=== PATIENT | female | born 1995 | race Caucasian/White ===

== ENCOUNTER 2024-02-12 19:27 | Emergency (ER) | payer OTHER, SELFPAY ==
--- NOTE | ~2024-02-12 | US_ITS ---
EXAMINATION: US VENOUS ULTRASOUND WITH DOPPLER LOWER EXTREMITY, BILATERAL CLINICAL INFORMATION: Bilateral lower extremity pain and edema. COMPARISON: None available. TECHNIQUE: Ultrasound of the deep veins is performed from the hip to the calf with compression sonography and color and pulse Doppler assessment. Spectral analysis with color-flow imaging is performed. FINDINGS: RIGHT: There is normal venous compression and respiratory variation and augmented flow. The visualized common femoral vein, superficial femoral vein, profunda femoral vein, popliteal vein, and the trifurcation region shows no evidence of deep venous thrombosis. There is no significant popliteal fossa cyst. LEFT: There is normal venous compression and respiratory variation and augmented flow. The visualized common femoral vein, superficial femoral vein, profunda femoral vein, popliteal vein, and the trifurcation region shows no evidence of deep venous thrombosis. There is no significant popliteal fossa cyst. If the patient's symptoms persist, followup ultrasound in 5 days 7 days might be of value to exclude proximal propagation from a non-visualized calf vein. US/US venous duplex LE BI IMPRESSION: No DVT demonstrated in the bilateral lower extremities.
--- NOTE | ~2024-02-12 | XR_ITS ---
EXAMINATION: XR CHEST CLINICAL INFORMATION: Shortness of breath. COMPARISON: None available. TECHNIQUE: Frontal view of the chest was obtained. FINDINGS: No significant abnormality is noted involving the heart, lungs, mediastinum, bony thorax or soft tissues. XR/XR chest 1V IMPRESSION: Unremarkable examination.
[2024-02-12 19:49] VITALS: BP 141/80; PULSE 77; RESP 20; TEMP 36.6; O2SAT 100; BMI 31.2
--- NOTE | 2024-02-12 19:55 | ECG_ITS ---
Test Reason : CHEST PAIN Blood Pressure : / mmHG Vent. Rate : 081 BPM Atrial Rate : 081 BPM P-R Int : 170 ms QRS Dur : 082 ms QT Int : 382 ms P-R-T Axes : 064 011 027 degrees QTc Int : 443 ms Normal sinus rhythm Normal ECG No previous ECGs available Referred By: Yo Segovia Electronically Signed By:Giancarlo Thomas
--- NOTE | 2024-02-12 19:56 | ED_ITS ---
HPI - General Adult General Chief complaint: General Medical Stated complaint: diabetic type1, lft leg pain Time Seen by Provider: 02/12/24 21:01 Source: patient Mode of arrival: ambulatory Limitations: no limitations History of Present Illness HPI narrative: Patient comes to the emergency room complaining of at least 1 year of bilateral lower extremity pain, more on the left, shortness of breath, no chest pain. Patient states that a few years ago when the symptoms started she had an ultrasound of the legs done and showed some abnormality but she can not really explain what it was. Patient denies any palpitations, no syncope, no chest pain. Related Data Allergies Allergy/AdvReac Type Severity Reaction Status Date / Time No Known Allergies Allergy Verified 02/12/24 19:52 Review of Systems 2 Review of Systems: Constitutional : No Weight loss, No Fever, No Chills, No Night Sweats, No Fatigue, No Malaise ENT/Mouth : No Hearing loss, No Ear Pain, No Nasal Congestion, No Sinus Pain, No Hoarseness, No sore throat, No Rhinorrhea, No Swallowing Difficulty Eyes: No Eye Pain, No Swelling, No Redness, No Foreign Body, No Discharge, No Vision Changes Cardiovascular : No Chest Pain, complaining of feeling like she can not catch a full breath Respiratory : No Cough, No Sputum, No Wheezing, No Smoke Exposure, No Dyspnea Gastrointestinal : No Nausea, No Vomiting, No Diarrhea, No Constipation, No abdominal Pain, No Hematochezia, No Melena Genitourinary : no irregular bleeding, No Dysuria, No Urinary Frequency, No Hematuria, No Urinary Incontinence, No Urgency, No Flank Pain, No Urinary Flow Changes, No Hesitancy Musculoskeletal : Complaining of bilateral calf pain for years, No joint pain, No Myalgias, No Joint Swelling Skin : No Skin Lesions, No rash Neuro : No Weakness, No Numbness, No Paresthesias, No Loss of Consciousness, No Dizziness, No Headache Psych : No Anxiety/Panic, No Depression, No SI/HI/AH/VH, No Social Issues, Heme/Lymph: No Bruising, No Bleeding,No Lymphadenopathy Endocrine : No Polyuria, No Polydipsia, No Temperature Intolerance [facility] Past Medical History Medical History (Updated 02/13/24 @ 00:00 by Background Daemon) Type 1 diabetes Social History Social History Smoked in Last 30 Days: No Advance Directives: No Advance Directives Information Provided: No Patient : No Physical Exam ED Vital Signs: Vital Signs - 24 hr 02/12/24 19:49 02/12/24 20:57 Temperature 97.8 F 98.8 F Pulse Rate 77 83 Respiratory Rate 20 20 Blood Pressure 141/80 H 126/73 Pulse Oximetry 100 100 Oxygen Delivery Method Room Air Room Air BMI result Body Mass Index 31.2 Const Other: Appearance: Alert. Oriented X3. No acute distress. Eyes: Pupils equal, round and reactive to light. ENT: Pharynx normal. Neck: Normal inspection. Neck supple. No lymph nodes noted. No crepitus CVS: Normal heart rate and rhythm. Pulses normal. Normal S1 and S2 Respiratory: No respiratory distress. Breath sounds normal. No Wheezing. No rales Abdomen: Soft and nontender. No rigidity. No distention. Skin: Skin warm and dry. Normal skin color. Normal skin turgor. Extremities: No lower extremity edema. No Lacerations. No Rash Neuro: Oriented X 3. No motor deficit. No sensory deficit. Moving all extremities. No slurred speech. CN 2 through 12 grossly intact Psych: calm, cooperative, normal affect Course Course Course Narrative: RME; 28 old female presents to ED for bilateral leg pain chronic shortness of breath and some chest pain. Bilateral lower extremity negative for pitting edema leg swelling or calf pain. Patient will have a cardiac and pulmonary evaluation. Ultrasound legs ordered. Chest lungs clear. Heart exam noraml. Medical Decision Making Medical Decision Making [facility] Narrative: -all of patient's labs, ultrasound and chest x-ray pending. -at this time, all of patient's vitals are completely normal -my interpretation of ultrasound: No obvious sign of DVT, patient's -my interpretation of chest x-ray: No infiltrate -patient has been having symptoms for 2-3 years now. D-dimer negative, ultrasound negative for lower extremity DVT, vitals normal, wells criteria score for pulmonary embolism is 0, PE not suspected Differential Diagnosis Differential Diagnoses: The differential diagnosis associated with the presentation includes (Musculoskeletal pain lower extremity pain, chronic pain syndrome, anxiety) Lab Data [facility] Lab Attestation statement: I reviewed the patient's lab results. 02/12/24 21:22 02/12/24 21:22 Labs: Lab Results 05/09/24 05/09/24 Range/Units 21:22 21:22 WBC 7.2 (4.8-10.8) X10*3/uL RBC 4.29 (4.20-5.50) X10*6/uL Hgb 13.3 (12.0-16.0) g/dl Hct 37.8 (37.0-47.0) % MCV 88.1 (80.0-98.0) fL MCH 31.0 (27.0-33.0) pg MCHC 35.2 H (31.0-35.0) g/dl RDW 12.8 (11.0-16.0) % Plt Count 303 (160-400) X10*3/uL MPV 10.0 (9.4-12.3) fL Immature Gran % (Auto) 0.1 (0.0-0.4) % Neut % (Auto) 68.6 (45-73) % Lymph % (Auto) 22.4 (20-40) % Jay % (Auto) 7.6 (2-11) % Eos % (Auto) 1.0 (0-4) % Baso % (Auto) 0.3 (0-2) % Lymph # (Auto) 1.6 (1.2-4.9) X10*3/uL Jay # (Auto) 0.5 (0.1-1.2) X10*3/uL Eos # (Auto) 0.1 (0.0-0.4) X10*3/uL Baso # (Auto) 0.0 (0.0-0.2) X10*3/uL Abs Immat Gran (auto) 0.01 (0.00-0.03) X10*3/uL Absolute Neuts (auto) 4.9 (2.0-8.3) x10*3/uL Absolute Nucleated RBC 0.000 (0.0-0.012) X10*3/uL Nucleated RBC % (auto) 0.0 (0.0-0.2) /100WBC PT 15.2 H (11.1-13.3) SEC INR 1.3 H (0.9-1.1) APTT 30.3 (26.0-36.8) SEC D-Dimer High Sensitivty < 150 Cancelled NG/ML Sodium 138 (135-145) mmol/L Potassium 3.3 (3.3-5.1) mmol/L Chloride 106 (96-108) mmol/L Carbon Dioxide 22 (22-29) mmol/L Anion Gap 13 (12-20) BUN 6 L (9-16) mg/dL Creatinine 0.75 (0.5-1.4) mg/dL Estim Creat Clear Calc 118.1 Estimated GFR > 60 Random Glucose 146 H (60-115) mg/dL Calcium 8.9 (8.4-10.2) mg/dL Total Bilirubin 0.4 (0.0-1.0) mg/dL AST 14 (5-31) U/L ALT 15 (0-31) U/L Alkaline Phosphatase 54 (39-117) U/L Troponin I High Sens < 2.7 (<3.5-17.0) ng/L B-Natriuretic Peptide 16 (<100) pg/mL Total Protein 7.5 (6.5-8.0) g/dL Albumin 4.1 (3.5-5.0) g/dL Influenza Type A (PCR) NEGATIVE (Negative) Influenza Type B (PCR) NEGATIVE (Negative) RSV RNA Qual (PCR) NEGATIVE (Negative) SARS-CoV-2 RNA (RT-PCR) NEGATIVE (Negative) Independent Interpretation I performed an independent interpretation of an: Plain X-Ray and Ultrasound Radiology Impression Discussion of test interpretation with radiology: I have reviewed the radiologist's reading. Radiologist Impression: RIGHT: There is normal venous compression and respiratory variation and augmented flow. The visualized common femoral vein, superficial femoral vein, profunda femoral vein, popliteal vein, and the trifurcation region shows no evidence of deep venous thrombosis. There is no significant popliteal fossa cyst. LEFT: There is normal venous compression and respiratory variation and augmented flow. The visualized common femoral vein, superficial femoral vein, profunda femoral vein, popliteal vein, and the trifurcation region shows no evidence of deep venous thrombosis. There is no significant popliteal fossa cyst. If the patient's symptoms persist, followup ultrasound in 5 days 7 days might be of value to exclude proximal propagation from a non-visualized calf vein. US/US venous duplex LE BI IMPRESSION: No DVT demonstrated in the bilateral lower extremities. FINDINGS: No significant abnormality is noted involving the heart, lungs, mediastinum, bony thorax or soft tissues. XR/XR chest 1V IMPRESSION: Unremarkable examination Critical Care Time Critical Care Time Critical Care Time: Yes Total Critical Care Time: 45 Attestation: I have personally provided critical care time. Time includes review of lab data, radiology results, discussion with consultants, and monitoring for potential decompensation. Intervention performed as documented. Discharge Plan Discharge Clinical Impression: Musculoskeletal pain Patient Disposition: Home, Self-Care Instructions: Musculoskeletal Pain (ED) Additional Instructions: Please follow-up with your primary care physician tomorrow. If you have any worsening or new symptoms, please return to the emergency room or call [phone] Interventions: ED Discharge Assessment Last Done: 02/12/24 22:33 Discharge Date/Time: 02/12/24 22:36 Print Language: [place] African
[2024-02-12 20:57] VITALS: BP 126/73; PULSE 83; RESP 20; TEMP 37.1; O2SAT 100
[2024-02-12 21:29] LABS: MANUAL DIFF FLAG NO
[2024-02-12 21:30] LABS: Basophils Percent Auto 0.3 % (0-2); Eosinophils Absolute Auto 0.1 X10*3/uL (0.0-0.4); Hematocrit 37.8 % (37.0-47.0); Hemoglobin 13.3 g/dl (12.0-16.0); Imm Gran Abs Auto 0.01 X10*3/uL (0.00-0.03); Imm Gran Pct Auto 0.1 % (0.0-0.4); Lymphocytes Absolute Auto 1.6 X10*3/uL (1.2-4.9); Lymphocytes Percent Auto 22.4 % (20-40); Mean Corpuscular HGB Conc 35.2 g/dl (31.0-35.0); Mean Corpuscular Volume 88.1 fL (80.0-98.0); Monocytes Absolute Auto 0.5 X10*3/uL (0.1-1.2); Monocytes Percent Auto 7.6 % (2-11); Neutrophils Absolute Auto 4.9 x10*3/uL (2.0-8.3); Neutrophils Percent Auto 68.6 % (45-73); Platelet Count 303 X10*3/uL (160-400); Red Blood Count 4.29 X10*6/uL (4.20-5.50); Red Cell Distribution Width 12.8 % (11.0-16.0); White Blood Count 7.2 X10*3/uL (4.8-10.8)
[2024-02-12 21:39] LABS: INTERNATIONAL NORM RATIO 1.3 (0.9-1.1); Prothrombin Time 15.2 SEC (11.1-13.3)
[2024-02-12 21:42] LABS: Partial Thromboplastin Time 30.3 SEC (26.0-36.8)
[2024-02-12 21:43] LABS: D Dimer High Sensitivity < 150 NG/ML
[2024-02-12 21:46] LABS: Alanine Aminotransferase 15 U/L (0-31); Albumin Level 4.1 g/dL (3.5-5.0); Alkaline Phosphatase 54 U/L (39-117); Anion Gap 13 (12-20); Aspartate Amino Transferase 14 U/L (5-31); Bilirubin Total 0.4 mg/dL (0.0-1.0); Blood Urea Nitrogen 6 mg/dL (9-16); Calcium 8.9 mg/dL (8.4-10.2); Carbon Dioxide 22 mmol/L (22-29); Chloride 106 mmol/L (96-108); Creatinine Clr Calc Pharmacy 118.1; Estimated Glomerular Filt Rate > 60; Glucose Random 146 mg/dL (60-115); Potassium 3.3 mmol/L (3.3-5.1); Sodium 138 mmol/L (135-145); Total Protein 7.5 g/dL (6.5-8.0)
[2024-02-12 21:51] LABS: B Type Natriuretic Peptide 16 pg/mL (<100)
[2024-02-12 22:09] LABS: Troponin-I High Sensitivity < 2.7 ng/L (<3.5-17.0)
[2024-02-12 22:17] LABS: Influenza A PCR NEGATIVE (Negative); Influenza B PCR NEGATIVE (Negative); Resp Syncy Virus RNA Qual PCR NEGATIVE (Negative); SARS COV2 PCR INHOUSE NEGATIVE (Negative)
[2024-02-12 22:33] VITALS: BP 126/73; PULSE 83; RESP 20; TEMP 37.1; O2SAT 100
== END 2024-02-12 22:36 | disposition home or self-care (01) ==
LOC: HO.ED 22:34
PROVIDERS: Physician Assistant; Emergency Provider Emergency Medicine
DX: M79.10 Myalgia, unspecified site (principal); E10.9 Type 1 diabetes mellitus without complications; M79.605 Pain in left leg; M79.604 Pain in right leg; R60.0 Localized edema; R07.89 Other chest pain; Z11.52 Encounter for screening for COVID-19; Z20.822 Contact with and (suspected) exposure to COVID-19; Z79.899 Other long term (current) drug therapy
CPT/HCPCS: 0241U; 36415; 71045; 80053; 83880; 84484; 85025; 85379; 85610; 85730; 93005; 93970; 99284

== ENCOUNTER → 2024-02-12 19:55 | Outpatient (BNV) | payer OTHER, SELFPAY | PROVIDERS: Emergency Provider Emergency Medicine; Visit Provider Internal Medicine Cardiovascular Disease | DX: R07.9 Chest pain, unspecified (principal) | CPT/HCPCS: 93010 ==

== ENCOUNTER 2024-05-26 17:15 | Emergency (ER) | payer OTHER, SELFPAY ==
--- NOTE | ~2024-05-26 | XR_ITS ---
EXAMINATION: XR CHEST 1 VIEW CLINICAL INFORMATION: pain COMPARISON: February 11 TECHNIQUE: Single portable frontal view. Tubes and lines: None Lungs and pleura: Both lungs are clear. Heart and mediastinum: The mediastinum is within normal limits.. Bones/soft tissue: Skeletal structures included are normal for patient's age. XR/XR chest 1V IMPRESSION: No radiographic evidence of acute cardiopulmonary disease. Electronically signed by: Pablo Devi MD 05/26/2024 06:37 PM EDT
--- NOTE | ~2024-05-26 | XR_ITS ---
EXAMINATION: XR ABDOMEN KUB CLINICAL INDICATION: constipation , patient has insulin pump COMPARISON: None available. TECHNIQUE: 2 AP views of the abdomen. FINDINGS: Moderate to large amount of stool in the colon. Nonobstructive bowel gas pattern. Electronic pack overlies the left lower quadrant. XR/XR KUB IMPRESSION: Moderate to large amount of stool in the colon. Nonobstructive bowel gas pattern. Electronic pack overlies the left lower quadrant. This study was presented today to September 21, 2024 for interpretation. Stat results provided at this time as requested by referring provider. Electronically signed by: Jacqueline Domínguez MD 09/21/2024 11:42 AM [facility]
--- NOTE | ~2024-05-26 | US_ITS ---
EXAMINATION: US TRIPLEX LOWER EXTREMITY, BILATERAL CLINICAL INFORMATION: Pain COMPARISON: None available. TECHNIQUE: Color-flow triplex imaging with spectral analysis and compression Doppler were performed on the bilateral lower extremities. FINDINGS: Respiratory variation, normal compression and augmented flow are noted throughout the bilateral lower extremities. The visualized common femoral vein, superficial femoral vein, profunda femoral vein, popliteal vein and midcalf peroneal and posterior tibial venous segments show no evidence of deep venous thrombosis bilaterally. There is no Harris's cyst. Mildly enlarged bilateral inguinal lymph nodes measuring up to 1.2 cm short axis on the right and 1.1 cm short axis on the left. US/US venous duplex LE BI IMPRESSION: 1. No evidence of deep venous thrombosis involving the bilateral lower extremities. 2. Mildly enlarged bilateral inguinal lymph nodes measuring up to 1.2 cm short axis on the right and 1.1 cm short axis on the left. Recommend correlation with any etiology for reactive lymphadenopathy, if no clinical explanation a CT abdomen pelvis with contrast can be obtained to assess for any underlying etiology. Electronically signed by: Deja Llamas MD 05/26/2024 07:12 PM EDT
[2024-05-26 18:00] VITALS: BP 112/61; PULSE 84; RESP 18; TEMP 37.1; O2SAT 100; BMI 30.1
--- NOTE | 2024-05-26 18:00 | ED.GENADULT ---
HPI - General Adult General Chief complaint: General Medical Stated complaint: bilateral lower leg pain, bloody stool Time Seen by Provider: 05/27/24 01:15 Source: patient Mode of arrival: ambulatory Limitations: no limitations History of Present Illness ED Provider: Dr. Turner HPI narrative: Patient with a host of complaints including constipation with passing occaisional blood with hard stools, pain to her calfs for months, and moments of shortness of breath. She states the main reason for coming is her constipation with rectal bleeding Onset (ago): month(s) Severity: mild Related Data Previous Rx's ?Medication ?Instructions ?Recorded psyllium husk 3.4 gram/5.4 gram 1 tsp PO BID #660 grams 05/27/24 oral powder (Metamucil) Allergies Allergy/AdvReac Type Severity Reaction Status Date / Time No Known Allergies Allergy Verified 05/26/24 18:05 Review of Systems Review of Systems: Yes all other systems are reviewed and are negative Neurologic: Denies Sensory deficit (Neuro) [facility] Past Medical History Medical History Type 1 diabetes Social History Social History Advance Directives: No Advance Directives Information Provided: No Do you have a plan to hurt others: No Plan Physical Exam ED Vital Signs: Vital Signs - 24 hr 05/26/24 18:00 05/26/24 23:04 Temperature 98.8 F 97.9 F Pulse Rate 84 82 Respiratory Rate 18 18 Blood Pressure 112/61 107/35 L Pulse Oximetry 100 100 Oxygen Delivery Method Room Air Room Air BMI result Body Mass Index 30.1 Const General: healthy appearing Nutritional Appearance: average body habitus Orientation/consciousness: oriented to person and patient oriented x3 Limitations: no limitations HENMT Head: Yes normal to inspection Ears: external ears normal General nose exam: Normal external nose present Mouth: Normal oral and palatal mucosa present and oropharynx normal Throat: Yes posterior oropharynx normal Eyes General: appearance normal, both eyes and all related structures Neck Neck: Yes normal visual inspection Chest Chest palpation & inspection: normal inspection of the chest Resp Auscultation: clear to auscultation bilaterally Cardio Jugular venous distension: no JVD Rate: regular rate Rhythm: regular rhythm Heart sounds: S1 normal heart sound present and S2 normal heart sound present GI Inspection: Yes normal to inspection Palpation (GI): Soft to palpation, nontender and No hepatosplenomegaly present Auscultation: normal bowel sounds General: Yes no CVA tenderness Back/Spine/Pelvis Back: no CVA tenderness Skin General skin exam: no rashes or lesions noted Neuro General: oriented to person and patient oriented x3 Cranial nerves: Yes CN's II-XII intact bilaterally Motor exam (neuro): 5/5 motor strength present throughout Sensory Exam: No Sensory deficit (Neuro) Extrem General: Yes normal to inspection Psych Appearance: grossly normal Course Course Course Narrative: RME, this is a rapid medical exam performed by Hank Murphy please refer to primary provider for complete H&P- 28 year old female presents for evaluation of bilateral leg pain behind the calves. Right leg is worse then the left. She is also complaining of shortness of breath. Lastly, she is complaining of bright red blood per rectum and constipation. Plan for labs, viral swabs Reevaluation(s) Reevaluation #1: Dr. Summers performed the rectal exam, questionable internal hemorrhoids Time: 01:55 Reevaluation #2: Will dc the patient on metamucil Time: 01:55 Medical Decision Making Differential Diagnosis Differential Diagnoses: The differential diagnosis associated with the presentation includes (constipation, rectal bleed, rectal fissure, hemorrhoids, DVT, PE, pneumonia) Admission/Observation Consideration of admission/observation: Escalation of care including admission/observation considered (upon arrival patient was considered for admission) Lab Data MDM Lab Attestation statement: I reviewed the patient's lab results. 05/26/24 19:21 05/26/24 19:21 Labs: Lab Results 05/26/24 Range/Units 19:21 WBC 9.3 (4.8-10.8) X10*3/uL RBC 4.04 L (4.20-5.50) X10*6/uL Hgb 12.7 (12.0-16.0) g/dl Hct 37.5 (37.0-47.0) % MCV 92.8 (80.0-98.0) fL MCH 31.4 (27.0-33.0) pg MCHC 33.9 (31.0-35.0) g/dl RDW 12.8 (11.0-16.0) % Plt Count 303 (160-400) X10*3/uL MPV 9.9 (9.4-12.3) fL Immature Gran % (Auto) 0.3 (0.0-0.4) % Neut % (Auto) 76.5 H (45-73) % Lymph % (Auto) 14.5 L (20-40) % Hunt % (Auto) 7.6 (2-11) % Eos % (Auto) 0.8 (0-4) % Baso % (Auto) 0.3 (0-2) % Lymph # (Auto) 1.3 (1.2-4.9) X10*3/uL Hunt # (Auto) 0.7 (0.1-1.2) X10*3/uL Eos # (Auto) 0.1 (0.0-0.4) X10*3/uL Baso # (Auto) 0.0 (0.0-0.2) X10*3/uL Abs Immat Gran (auto) 0.03 (0.00-0.03) X10*3/uL Absolute Neuts (auto) 7.1 (2.0-8.3) x10*3/uL Absolute Nucleated RBC 0.000 (0.0-0.012) X10*3/uL Nucleated RBC % (auto) 0.0 (0.0-0.2) /100WBC PT 15.1 H (11.1-13.3) SEC INR 1.2 H (0.9-1.1) Sodium 137 (135-145) mmol/L Potassium 4.1 D (3.3-5.1) mmol/L Chloride 106 (96-108) mmol/L Carbon Dioxide 22 (22-29) mmol/L Anion Gap 12 (12-20) BUN 12 (9-16) mg/dL Creatinine 0.73 (0.5-1.4) mg/dL Estim Creat Clear Calc 119.2 Estimated GFR > 60 Random Glucose 161 H (60-115) mg/dL Calcium 9.2 (8.4-10.2) mg/dL Magnesium 2.0 (1.6-2.6) mg/dL Total Bilirubin 0.3 (0.0-1.0) mg/dL AST 14 (5-31) U/L ALT 14 (0-31) U/L Alkaline Phosphatase 65 (39-117) U/L B-Natriuretic Peptide 20 (<100) pg/mL Total Protein 7.3 (6.5-8.0) g/dL Albumin 4.0 (3.5-5.0) g/dL Lipase 15 (8-78) U/L Beta HCG, Quant < 2 mIU/mL Urine Color Yellow Urine Appearance Clear Urine pH 6.5 (5.0-9.0) Ur Specific [place] <= 1.005 (1.005-1.025) Urine Protein Negative (Neg-Trace) mg/dL Urine Glucose (UA) 100 H (Negative) mg/dL Urine Ketones Negative (Negative) mg/dL Urine Blood Small (1+) H (Negative) Urine Nitrite Negative (Negative) Ur Leukocyte Esterase Negative (Negative) Urine RBC 0-2 (0-2) /HPF Urine WBC 0-5 (0-5) /HPF Ur Squamous Epith Cells 0-2 (0-2) /HPF Urine Bacteria Trace (None Seen) Hyaline Casts 0-2 (0-2) /LPF COVID-19 ([facility]) Negative (Negative) COVID-19 Clin Com See Note Independent Interpretation I performed an independent interpretation of an: Plain X-Ray (CXR: no infiltrate) Radiology Impression Discussion of test interpretation with radiology: I have reviewed the radiologist's reading. (dopplers of legs: no dvt I agree) Independent Historian Clinical information obtained from an independent historian. History obtained from or confirmed by: EMS Prescription Management I considered prescription management with: Antibiotic (no evidence of pneumonia will not give abx) Chronic Conditions Patient?s care impacted by: Diabetes Discharge Plan Discharge Clinical Impression: Constipation, Hemorrhoids, Shortness of breath Patient Disposition: Home, Self-Care Instructions: Constipation (ED) Prescriptions: New Metamucil 3.4 gram/5.4 gram powder 1 tsp PO BID Qty: 660 0RF Rx Instructions: mix into at least 4 oz water or juice before administering Referrals: Physician,Unknown J [Primary Care Provider] - 5 days Print Language: Libyan
[2024-05-26 19:25] LABS: MANUAL DIFF FLAG NO
[2024-05-26 19:28] LABS: Basophils Percent Auto 0.3 % (0-2); Eosinophils Absolute Auto 0.1 X10*3/uL (0.0-0.4); Eosinophils Percent Auto 0.8 % (0-4); Hematocrit 37.5 % (37.0-47.0); Hemoglobin 12.7 g/dl (12.0-16.0); Imm Gran Abs Auto 0.03 X10*3/uL (0.00-0.03); Imm Gran Pct Auto 0.3 % (0.0-0.4); Lymphocytes Absolute Auto 1.3 X10*3/uL (1.2-4.9); Lymphocytes Percent Auto 14.5 % (20-40); Mean Corpuscular HGB Conc 33.9 g/dl (31.0-35.0); Mean Corpuscular Hemoglobin 31.4 pg (27.0-33.0); Mean Corpuscular Volume 92.8 fL (80.0-98.0); Mean Platelet Volume 9.9 fL (9.4-12.3); Monocytes Absolute Auto 0.7 X10*3/uL (0.1-1.2); Monocytes Percent Auto 7.6 % (2-11); Neutrophils Absolute Auto 7.1 x10*3/uL (2.0-8.3); Neutrophils Percent Auto 76.5 % (45-73); Platelet Count 303 X10*3/uL (160-400); Red Blood Count 4.04 X10*6/uL (4.20-5.50); Red Cell Distribution Width 12.8 % (11.0-16.0); White Blood Count 9.3 X10*3/uL (4.8-10.8)
[2024-05-26 19:29] LABS: Appearance Urine Clear; Color Urine Yellow; Glucose Urine UA 100 mg/dL (Negative); Leukocyte Esterase Urine Negative (Negative); Nitrite Urine Negative (Negative); PH 6.5 (5.0-9.0); Specific Gravity - Urine <= 1.005 (1.005-1.025); UMIC TRIGGER UACC YES; Urine Blood Small (1+) (Negative); Urine Ketones Negative (Negative); Urine Protein Negative (Neg-Trace)
[2024-05-26 19:41] LABS: Bacteria Urine Trace (None Seen); COVID-19 Test Negative (Negative); Hyaline Casts Urine 0-2 /LPF (0-2); IDNOW Serial# 08D9AD1C; RBC Urine 0-2 /HPF (0-2); Squamous Epithelial Cell Urine 0-2 /HPF (0-2); WBC Urine 0-5 /HPF (0-5)
[2024-05-26 19:44] LABS: INTERNATIONAL NORM RATIO 1.2 (0.9-1.1); Prothrombin Time 15.1 SEC (11.1-13.3)
[2024-05-26 19:57] LABS: Alanine Aminotransferase 14 U/L (0-31); Alkaline Phosphatase 65 U/L (39-117); Aspartate Amino Transferase 14 U/L (5-31); Bilirubin Total 0.3 mg/dL (0.0-1.0); Blood Urea Nitrogen 12 mg/dL (9-16); Calcium 9.2 mg/dL (8.4-10.2); Chloride 106 mmol/L (96-108); Creatinine Clr Calc Pharmacy 119.2; Estimated Glomerular Filt Rate > 60; Glucose Random 161 mg/dL (60-115); Lipase 15 U/L (8-78); Potassium 4.1 mmol/L (3.3-5.1); Sodium 137 mmol/L (135-145); Total Protein 7.3 g/dL (6.5-8.0)
[2024-05-26 19:58] LABS: B Type Natriuretic Peptide 20 pg/mL (<100)
[2024-05-26 19:59] LABS: HCG Quantitative < 2 mIU/mL
[2024-05-26 20:10] LABS: Anion Gap 12 (12-20); Carbon Dioxide 22 mmol/L (22-29)
[2024-05-26 23:04] VITALS: BP 107/35; PULSE 82; RESP 18; TEMP 36.6; O2SAT 100
[2024-05-27 02:00] VITALS: BP 107/62; PULSE 66; RESP 18; TEMP 37.1; O2SAT 99
--- NOTE | 2024-05-27 02:04 | PC.NURSE ---
Pt is a 28 y/o female who presents for evaluation of blood in stool and bilateral leg pain, with noticeable swelling on left side. Pt reports ongoing episodes of intermittent constipation since Oct with noticeable blood in stool. Pt also reports concern for a possible blood clot, feels unable to get a deep breath. No history of hemorrhoids or previous blood clots in the past. Hx is significant for T1DM and decreased kidney function. No other complaints or concerns for this visit.
[2024-05-27 02:15] LABS: OBS Int Ctl Valid YES; OBS1 POSITIVE (NEGATIVE)
[2024-05-27 02:21] VITALS: BP 118/64; PULSE 82; RESP 16; TEMP 36.9
== END 2024-05-27 02:25 | disposition home or self-care (01) ==
PROVIDERS: Physician Assistant; Emergency Provider Emergency Medicine
DX: K59.00 Constipation, unspecified (principal); K64.9 Unspecified hemorrhoids; R06.02 Shortness of breath; K62.5 Hemorrhage of anus and rectum; E10.9 Type 1 diabetes mellitus without complications; M79.605 Pain in left leg; M79.604 Pain in right leg
CPT/HCPCS: 36415; 71045; 74018; 80053; 81001; 82272; 83690; 83735; 83880; 84702; 85025; 85610; 87635; 93970; 99283; 99284

== ENCOUNTER 2024-07-07 16:16 | Emergency (ER) | payer OTHER, SELFPAY ==
--- NOTE | ~2024-07-07 | US_ITS ---
EXAMINATION: US TRIPLEX LOWER EXTREMITY, BILATERAL CLINICAL INFORMATION: Pain. COMPARISON: None available. TECHNIQUE: Color-flow triplex imaging with spectral analysis and compression Doppler were performed on the bilateral lower extremities. FINDINGS: Respiratory variation, normal compression and augmented flow are noted throughout the bilateral lower extremities. The visualized common femoral vein, superficial femoral vein, profunda femoral vein, popliteal vein and midcalf peroneal and posterior tibial venous segments show no evidence of deep venous thrombosis bilaterally. There is no Harris's cyst. US/US venous duplex LE BI IMPRESSION: No evidence of deep venous thrombosis involving the bilateral lower extremities. Electronically signed by: Quintin Musa MD 07/07/2024 06:07 PM EDT
--- NOTE | ~2024-07-07 | XR_ITS ---
EXAMINATION: XR CHEST CLINICAL INFORMATION: Difficulty breathing. Chest pain. COMPARISON: Chest radiograph from 05/26/2024. TECHNIQUE: 2 views of the chest were obtained. FINDINGS: The lungs are well expanded. No evidence of focal consolidation, pleural effusion, pulmonary edema, or pneumothorax. The cardiomediastinal silhouette is within normal limits. No acute osseous abnormalities. XR/XR chest 2V IMPRESSION: No radiographically evident acute pulmonary abnormalities. Electronically signed by: Andrew Sin DO 07/07/2024 05:48 PM EDT
--- NOTE | 2024-07-07 16:19 | ECG_ITS ---
Test Reason : CHEST PAIN Blood Pressure : / mmHG Vent. Rate : 070 BPM Atrial Rate : 070 BPM P-R Int : 140 ms QRS Dur : 078 ms QT Int : 396 ms P-R-T Axes : 064 018 023 degrees QTc Int : 427 ms Normal sinus rhythm Normal ECG When compared with ECG of 12-FEB-2024 21:05, No significant change was found Referred By: Kenna Barbour Electronically Signed By:DEON JOYNER
[2024-07-07 16:21] VITALS: BP 125/77; PULSE 79; RESP 20; TEMP 36.6; O2SAT 99; BMI 23.2
--- NOTE | 2024-07-07 16:21 | ED_ITS ---
HPI - General Adult General Chief complaint: General Medical Stated complaint: diff breathing with sharp pain in chest Time Seen by Provider: 07/07/24 17:27 Source: patient Mode of arrival: ambulatory Limitations: no limitations History of Present Illness HPI narrative: This is a 28-year-old woman with a past medical history of type 1 diabetes mellitus, ?JOSE who presents for evaluation of chest pain and dyspnea. Patient reports intermittent chest pain and bilateral lower extremity pain for the last couple of months. She states episodes happen when standing or sitting. She states also she finds herself having difficulty taking a deep breath. She does not state any dyspnea. She states no fevers, chills, cough or hemoptysis. She states no syncope. She states no abdominal pain or back pain. She states no vomiting or diaphoresis. She states no history of DVT/PE. She states no history of malignancy. She states no recent surgery. She states no hormone/contraceptive use. Related Data Previous Rx's ?Medication ?Instructions ?Recorded psyllium husk 3.4 gram/5.4 gram 1 tsp PO BID #660 grams 05/27/24 oral powder (Metamucil) Allergies Allergy/AdvReac Type Severity Reaction Status Date / Time No Known Allergies Allergy Verified 07/07/24 16:26 Review of Systems 2 Review of Systems: ROS as per HPI [facility] Past Medical History Medical History Type 1 diabetes Physical Exam ED Vital Signs: Vital Signs - 24 hr 07/07/24 16:21 Temperature 97.9 F Pulse Rate 79 Respiratory Rate 20 Blood Pressure 125/77 Pulse Oximetry 99 Oxygen Delivery Method Room Air BMI result Body Mass Index 23.2 Gen: NAD, AOx3 HEENT: NCAT, EOMI, normal conjunctiva CV: RRR, no pitting edema, no murmurs appreciated Pulm: CTAB, no increased work of breathing GI: Soft, NTND, no rebound, guarding or rigidity MSK: No asymmetrical calf edema/erythema/TTP Neuro: Grossly non focal Course Course Course Narrative: This is a rapid medical exam performed by Andriy Barbour NP: Additional HPI, ROS, PE not included below will be deferred to primary provider. Patient is a 28-year-old female with T1DM presenting to the ED with complaint of shortness of breath and sharp chest pain for the past month. Also complains of bilateral lower leg pain and swelling. Plan: EKG, labs, CXR Medical Decision Making Medical Decision Making [facility] Narrative: Differential diagnosis includes, but is not limited to anxiety, panic attack, ACS, pneumothorax, DVT, PE. Patient is afebrile and hemodynamically stable on room air. Exam is benign and reassuring. I independently reviewed the patient's chest x-ray, EKG and ultrasound of the bilateral lower extremities as below. I independently reviewed and treated the patient's blood work including a CBC, coagulation studies, chemistries and troponin, which are unremarkable. Beta hCG is negative. Urinalysis is noncontributory. Patient tests negative for COVID- 19, influenza and RSV. Given a negative bilateral lower extremity duplex ultrasounds and D-dimer less than 150, there is no indication for further evaluation in this low risk patient such as with a CT angiography for pulmonary embolism. On re-examination, patient is well-appearing and in no acute distress. ?Patient states symptoms have resolved. ?There is no indication for further emergent evaluation in this otherwise well-appearing patient as above. ?Patient is provided written and verbal instructions, educational materials, recommendations for outpatient follow-up, strict return precautions and teach back is performed. ?Patient states understanding and agreement with plan of care. ?Patient is discharged home in stable and improved condition. Admission/Observation Consideration of admission/observation: Escalation of care including admission/observation considered Lab Data [facility] Lab Attestation statement: I reviewed the patient's lab results. 07/07/24 17:17 07/07/24 17:16 Labs: Lab Results 07/07/24 07/07/24 07/07/24 Range/Units 17:16 17:17 17:30 WBC 8.3 (4.8-10.8) X10*3/uL RBC 3.98 L (4.20-5.50) X10*6/uL Hgb 12.5 (12.0-16.0) g/dl Hct 36.9 L (37.0-47.0) % MCV 92.7 (80.0-98.0) fL MCH 31.4 (27.0-33.0) pg MCHC 33.9 (31.0-35.0) g/dl RDW 12.4 (11.0-16.0) % Plt Count 267 (160-400) X10*3/uL MPV 10.4 (9.4-12.3) fL Immature Gran % (Auto) 0.2 (0.0-0.4) % Neut % (Auto) 75.2 H (45-73) % Lymph % (Auto) 15.5 L (20-40) % [place] % (Auto) 7.5 (2-11) % Eos % (Auto) 1.2 (0-4) % Baso % (Auto) 0.4 (0-2) % Lymph # (Auto) 1.3 (1.2-4.9) X10*3/uL [place] # (Auto) 0.6 (0.1-1.2) X10*3/uL Eos # (Auto) 0.1 (0.0-0.4) X10*3/uL Baso # (Auto) 0.0 (0.0-0.2) X10*3/uL Abs Immat Gran (auto) 0.02 (0.00-0.03) X10*3/uL Absolute Neuts (auto) 6.2 (2.0-8.3) x10*3/uL Absolute Nucleated RBC 0.000 (0.0-0.012) X10*3/uL Nucleated RBC % (auto) 0.0 (0.0-0.2) /100WBC PT 15.5 H (10.9-12.4) SEC INR 1.3 H (0.9-1.1) D-Dimer High Sensitivty < 150 NG/ML Sodium 138 (135-145) mmol/L Potassium 4.0 (3.3-5.1) mmol/L Chloride 107 (96-108) mmol/L Carbon Dioxide 25 (22-29) mmol/L Anion Gap 10 L (12-20) BUN 10 (9-16) mg/dL Creatinine 0.69 (0.5-1.4) mg/dL Estim Creat Clear Calc 107.3 Estimated GFR > 60 Random Glucose 147 H (60-115) mg/dL Calcium 8.9 (8.4-10.2) mg/dL Total Bilirubin 0.6 (0.0-1.0) mg/dL AST 13 (5-31) U/L ALT 15 (0-31) U/L Alkaline Phosphatase 51 (39-117) U/L Troponin I High Sens < 2.7 (<3.5-17.0) ng/L Total Protein 7.2 (6.5-8.0) g/dL Albumin 4.1 (3.5-5.0) g/dL Beta HCG, Quant < 2 mIU/mL Urine Color Yellow Urine Appearance Clear Urine pH 6.5 (5.0-9.0) Ur Specific [place] <= 1.005 (1.005-1.025) Urine Protein Negative (Neg-Trace) mg/dL Urine Glucose (UA) Negative (Negative) mg/dL Urine Ketones Negative (Negative) mg/dL Urine Blood Trace H (Negative) Urine Nitrite Negative (Negative) Ur Leukocyte Esterase Negative (Negative) Urine RBC 0-2 (0-2) /HPF Urine WBC 0-5 (0-5) /HPF Ur Squamous Epith Cells 0-2 (0-2) /HPF Urine Bacteria None Seen (None Seen) Hyaline Casts 0-2 (0-2) /LPF Influenza Type A (PCR) NEGATIVE (Negative) Influenza Type B (PCR) NEGATIVE (Negative) RSV RNA Qual (PCR) NEGATIVE (Negative) SARS-CoV-2 RNA (RT-PCR) NEGATIVE (Negative) Independent Interpretation I performed an independent interpretation of an: EKG and Plain X-Ray Interpretation: I independently reviewed and interpreted the patient's chest x-ray, which demonstrates no pneumothorax, pleural effusion or focal consolidation I independently reviewed venous duplex of the bilateral lower extremities, which demonstrates no deep vein thrombosis I independently reviewed and interpreted the patient's EKG, which demonstrates sinus rhythm at 70 beats per minute, NM 140, QRS 78, QTC 427, no STEMI Radiology Impression Discussion of test interpretation with radiology: I have reviewed the radiologist's reading. Radiologist Impression: US/US venous duplex LE BI IMPRESSION: No evidence of deep venous thrombosis involving the bilateral lower extremities. Electronically signed by: Quintin Musa MD 07/07/2024 06:07 PM EDT Dictated By: Quintin Musa MD Signed By: <Electronically signed by Quintin Musa MD in [place]> 07/07/24 6914 XR/XR chest 2V IMPRESSION: No radiographically evident acute pulmonary abnormalities. Electronically signed by: Andrew Sin DO 07/07/2024 05:48 PM EDT RP Dictated By: Ron Sin DO Signed By: <Electronically signed by Ron Sin DO in [place]> 07/07/24 1748 Discharge Plan Discharge Clinical Impression: Chest pain, Bilateral leg pain Patient Disposition: Home, Self-Care Instructions: Chest Pain (ED), Leg Pain (ED) Additional Instructions: You were seen and evaluated in the emergency room. Your vital signs were normal and he did not have fever. ? Your blood work, EKG, chest x-ray and ultrasound of the legs were normal. Please follow-up with your primary care doctor in the next 5-7 days to discuss your symptoms. Please note that your medicalu evaluation is not complete until you follow-up with your primary care doctor. Please return to the emergency room if you develop any worsening symptoms. Prescriptions: No Action Metamucil 3.4 gram/5.4 gram powder 1 tsp PO BID Qty: 660 0RF Rx Instructions: mix into at least 4 oz water or juice before administering Print Language: Khmer
[2024-07-07 17:24] LABS: MANUAL DIFF FLAG NO
[2024-07-07 17:30] LABS: INTERNATIONAL NORM RATIO 1.3 (0.9-1.1); Prothrombin Time 15.5 SEC (10.9-12.4)
[2024-07-07 17:45] LABS: Alanine Aminotransferase 15 U/L (0-31); Albumin Level 4.1 g/dL (3.5-5.0); Alkaline Phosphatase 51 U/L (39-117); Anion Gap 10 (12-20); Aspartate Amino Transferase 13 U/L (5-31); Bilirubin Total 0.6 mg/dL (0.0-1.0); Blood Urea Nitrogen 10 mg/dL (9-16); Calcium 8.9 mg/dL (8.4-10.2); Carbon Dioxide 25 mmol/L (22-29); Chloride 107 mmol/L (96-108); Creatinine Clr Calc Pharmacy 107.3; Estimated Glomerular Filt Rate > 60; Glucose Random 147 mg/dL (60-115); Sodium 138 mmol/L (135-145); Total Protein 7.2 g/dL (6.5-8.0)
[2024-07-07 17:47] LABS: Basophils Percent Auto 0.4 % (0-2); Eosinophils Absolute Auto 0.1 X10*3/uL (0.0-0.4); Eosinophils Percent Auto 1.2 % (0-4); Hematocrit 36.9 % (37.0-47.0); Hemoglobin 12.5 g/dl (12.0-16.0); Imm Gran Abs Auto 0.02 X10*3/uL (0.00-0.03); Imm Gran Pct Auto 0.2 % (0.0-0.4); Lymphocytes Absolute Auto 1.3 X10*3/uL (1.2-4.9); Lymphocytes Percent Auto 15.5 % (20-40); Mean Corpuscular HGB Conc 33.9 g/dl (31.0-35.0); Mean Corpuscular Hemoglobin 31.4 pg (27.0-33.0); Mean Corpuscular Volume 92.7 fL (80.0-98.0); Mean Platelet Volume 10.4 fL (9.4-12.3); Monocytes Absolute Auto 0.6 X10*3/uL (0.1-1.2); Monocytes Percent Auto 7.5 % (2-11); Neutrophils Absolute Auto 6.2 x10*3/uL (2.0-8.3); Neutrophils Percent Auto 75.2 % (45-73); Platelet Count 267 X10*3/uL (160-400); Red Blood Count 3.98 X10*6/uL (4.20-5.50); Red Cell Distribution Width 12.4 % (11.0-16.0); White Blood Count 8.3 X10*3/uL (4.8-10.8)
[2024-07-07 17:50] LABS: Troponin-I High Sensitivity < 2.7 ng/L (<3.5-17.0)
[2024-07-07 17:50] LABS: Appearance Urine Clear; Color Urine Yellow; Glucose Urine UA Negative (Negative); Leukocyte Esterase Urine Negative (Negative); Nitrite Urine Negative (Negative); PH 6.5 (5.0-9.0); Specific Gravity - Urine <= 1.005 (1.005-1.025); UMIC TRIGGER UACC YES; Urine Blood Trace (Negative); Urine Ketones Negative (Negative); Urine Protein Negative (Neg-Trace)
[2024-07-07 17:50] LABS: HCG Quantitative < 2 mIU/mL
[2024-07-07 17:53] LABS: Bacteria Urine None Seen (None Seen); Hyaline Casts Urine 0-2 /LPF (0-2); RBC Urine 0-2 /HPF (0-2); Squamous Epithelial Cell Urine 0-2 /HPF (0-2); WBC Urine 0-5 /HPF (0-5)
[2024-07-07 18:07] LABS: D Dimer High Sensitivity < 150 NG/ML
[2024-07-07 18:15] LABS: Influenza A PCR NEGATIVE (Negative); Influenza B PCR NEGATIVE (Negative); Resp Syncy Virus RNA Qual PCR NEGATIVE (Negative); SARS COV2 PCR INHOUSE NEGATIVE (Negative)
[2024-07-07 18:58] VITALS: BP 107/61; PULSE 72; RESP 20; TEMP 36.8; O2SAT 100
[2024-07-07 18:59] VITALS: BP 107/61; PULSE 72; RESP 18; TEMP 36.8; O2SAT 100
== END 2024-07-07 19:00 | disposition home or self-care (01) ==
PROVIDERS: Registered Nurse Emergency; Emergency Provider Emergency Medicine
DX: R07.9 Chest pain, unspecified (principal); M79.605 Pain in left leg; M79.604 Pain in right leg; R06.02 Shortness of breath; Z03.818 Encounter for observation for suspected exposure to other biological agents ruled out; E10.9 Type 1 diabetes mellitus without complications; Z79.899 Other long term (current) drug therapy
CPT/HCPCS: 0241U; 71046; 80053; 81001; 84484; 84702; 85025; 85379; 85610; 93005; 93970; 99284

== ENCOUNTER 2024-11-05 17:28 | Emergency (ER) | payer OTHER, SELFPAY ==
--- NOTE | ~2024-11-05 | US_ITS ---
CLINICAL HISTORY: pain swelling Venous duplex ultrasound bilateral lower extremity Comparison: None Findings: The visualized deep veins are fully compressible with normal Doppler color flow and spectral tracings. No popliteal cyst. IMPRESSION: 1. Negative for bilateral lower extremity deep vein thrombosis. This document has been electronically signed by: Mango Pickard MD on 11/05/2024 23:46:15
--- NOTE | ~2024-11-05 | XR_ITS ---
CLINICAL HISTORY: cp 2 view chest x-ray Comparison: CR/SR - XR CHEST 2V - 07/07/24 16:36 EDT Findings: Mediastinal contours, cardiac silhouette, and pulmonary vasculature are within normal limits. No focal areas of consolidation. No pleural effusion or pneumothorax. IMPRESSION: 1. No acute findings. This document has been electronically signed by: Vincent Judge MD on 11/05/2024 18:37:07
--- NOTE | 2024-11-05 17:31 | ECG_ITS ---
Test Reason : chest pain Blood Pressure : */* mmHG Vent. Rate : 74 BPM Atrial Rate : 74 BPM P-R Int : 168 ms QRS Dur : 80 ms QT Int : 388 ms P-R-T Axes : 56 28 33 degrees QTcB Int : 430 ms Normal sinus rhythm Cannot rule out Anterior infarct , age undetermined Abnormal ECG When compared with ECG of 07-Jul-2024 17:03, No significant change was found Referred By: Jeny Bass Electronically Signed By: TED BELTRAN
--- NOTE | 2024-11-05 17:46 | ED_ITS ---
HPI - Chest Pain General Chief Complaint: Chest Pain Stated Complaint: chest pain/both leg pain Time Seen by Provider: 11/05/24 19:41 Source: patient Limitations: no limitations History of Present Illness ED Provider: Binta Guy PA-C HPI narrative: 29-year-old female with self-reported diabetes presents with multiple complaints. Patient states she has been having ongoing bilateral lower extremity pain since her diagnosis of diabetes in 2016. Patient also states she has had worsening pain and swelling in the left lower extremity for days. In addition, patient complains of intermittent central chest discomfort. The pain comes and goes, it is not necessarily related to activity. Pain is elicited with palpation of chest wall. Patient denies repetitive activity, new heavy lifting or new exercise that could have precipitated her symptoms. Denies recent cough or cold symptoms or fever. Patient states she also has had ongoing dyspnea while walking up a flight of stairs. To note, the patient's symptoms have been present for over a year. In addition, patient has followed up with her primary care provider and has had pulmonary function testing. In addition, patient has a pending sleep study. Related Data Previous Rx's ?Medication ?Instructions ?Recorded psyllium husk 3.4 gram/5.4 gram 1 tsp PO BID #660 grams 05/27/24 oral powder (Metamucil) Allergies Allergy/AdvReac Type Severity Reaction Status Date / Time No Known Allergies Allergy Verified 11/05/24 17:48 Review of Systems 2 Review of Systems: Yes all other systems are reviewed and are negative Constitutional: Constitutional: Denies fatigue and Denies fever(s) Cardiovascular: Cardiovascular: Reports chest pain and Reports dyspnea Respiratory: Respiratory: Denies cough and Reports dyspnea Gastrointestinal: Gastrointestinal: Denies abdominal pain, Denies nausea and Denies vomiting Musculoskeletal: Musculoskeletal: Denies arthralgias and Denies joint swelling Endocrine: Endocrine: Denies fatigue PMFSH Past Medical History Attestation statement: The following information was validated with the patient. Medical History Type 1 diabetes Social History Social History Advance Directives: No Advance Directives Information Provided: No Physical Exam 2 Vital Signs: Vital Signs: Last Vital Signs Temp 98.2 F 11/05/24 21:36 Pulse 70 11/05/24 21:36 Resp 16 11/05/24 21:36 BP 109/58 L 11/05/24 21:36 Pulse Ox 98 11/05/24 21:36 O2 Del Method Room Air 11/05/24 21:36 BMI result Body Mass Index 31.7 Const: Other: Alert, well-appearing Orientation/consciousness: patient oriented x3 Chest: Other: Pain elicited with palpation of central anterior chest wall Resp: Effort & Inspection: normal respiratory effort Cardio: Other: Normal peripheral perfusion, no pitting edema Skin: Other: Warm dry no rash Neuro: General: patient oriented x3, gait normal, no focal motor deficits and CN's II-XI intact bilaterally Extrem: Other: Both calves are symmetric, I do not detect unilateral swelling, there was no overlying erythema, unremarkable exam Psych: Other: Calm Course Course Course Narrative: This is a rapid medical exam. Deferred additional HPI, ROS, PE to primary provider. 29 yo female with history of type 1 DM here with complaints of intermittent chest pain, bilateral leg pain x 1 yr. Had been seen here in July for similar symptoms with negative trinh. Has not followed up with PCP. Will obtain labs, EKG, CXR SCAR -Cory Bass APRN Reevaluation(s) Reevaluation #1: When I was initially interviewing the patient in regard to her chest pain and lower extremity discomfort, she admits that she has had a prolonged period of symptoms, to be exact since 2015. I did state to the patient that her pain is chronic, that this will be further outpatient workup. The patient preceded to ask for ultrasounds to make sure she did not have a clot. I again relayed that she has had discomfort for years, that this is the emergency department, that we will be focusing on acute issues not chronic issues. Patient then proceeded to say that over the past several days she has had worsening pain and swelling of the left lower extremity. Her symptoms are subjective as I have previously stated. I agreed to order an ultrasound of the left lower extremity. When the patient was with the machine maintenance technician, she verbalized that she wanted her right lower extremity assessed. The machine maintenance technician relayed that there was only an order for the left lower extremity to be imaged. At this point the patient declined the DVT study of the left lower extremity, she was insisting to have a bilateral study. The patient was returned to her exam room. I have no clinical suspicion that the patient has a DVT in either lower extremity. I felt that there would be retaliation on the patient's part, if she did not receive the imaging that she was requesting. I ordered the ultrasound of the right lower extremity as well. I did address this matter with the clinical sheet metal shop supervisor overnight. Time: 21:34 Medical Decision Making Medical Decision Making [facility] Narrative: 29-year-old female with self-reported diabetes presents with multiple complaints. Patient states she has been having ongoing bilateral lower extremity pain since her diagnosis of diabetes in 2016. Patient also states she has had worsening pain and swelling in the left lower extremity for days. In addition, patient complains of intermittent central chest discomfort. The pain comes and goes, it is not necessarily related to activity. Pain is elicited with palpation of chest wall. Patient denies repetitive activity, new heavy lifting or new exercise that could have precipitated her symptoms. Denies recent cough or cold symptoms or fever. Patient states she also has had ongoing dyspnea while walking up a flight of stairs. To note, the patient's symptoms have been present for over a year. In addition, patient has followed up with her primary care provider and has had pulmonary function testing. In addition, patient has a pending sleep study. Problem: Diabetes History: Per patient I have considered the following differential diagnoses: ACS, PE, DVT, chest wall strain, costochondritis, Plan: ACS was considered, screening labs including cardiac enzymes EKG and chest x-ray were obtained from triage. This is not ACS, the patient's presentation is atypical, she has minimal risk factors for coronary artery disease, she has had symptoms for over a year. Her exam was most consistent with chest wall strain given the reproducibility of the discomfort with palpation of the chest wall. She has not had preceding viral symptoms to suggest costochondritis. PE also less likely given no objective signs symptoms for DVT on exam, she is not hypoxic, she does not have pleuritic chest discomfort, and she is PERC negative. She complains of worsening pain in the left lower extremity with the swelling, this is subjective, we will obtain an ultrasound to rule out DVT. I have independently reviewed the following tests: Labs: No leukocytosis, not anemic, no electrolyte abnormality, troponin negative EKG: Normal sinus rhythm, rate of 74, no ischemic changes no ectopy when compared to prior study Chest x-ray:Findings: Mediastinal contours, cardiac silhouette, and pulmonary vasculature are within normal limits. No focal areas of consolidation. No pleural effusion or pneumothorax. IMPRESSION: 1. No acute findings. This document has been electronically signed by: Vincent Judge MD on 11/05/2024 18:37:07 Ultrasound bilateral lower extremities: Lab Data 11/05/24 17:58 11/05/24 17:58 Labs: Lab Results 11/05/24 Range/Units 17:58 WBC 7.8 (4.8-10.8) X10*3/uL RBC 3.90 L (4.20-5.50) X10*6/uL Hgb 12.1 (12.0-16.0) g/dl Hct 35.9 L (37.0-47.0) % MCV 92.1 (80.0-98.0) fL MCH 31.0 (27.0-33.0) pg MCHC 33.7 (31.0-35.0) g/dl RDW 12.8 (11.0-16.0) % Plt Count 276 (160-400) X10*3/uL MPV 9.5 (9.4-12.3) fL Immature Gran % (Auto) 0.1 (0.0-0.4) % Neut % (Auto) 70.0 (45-73) % Lymph % (Auto) 19.4 L (20-40) % [place] % (Auto) 8.6 (2-11) % Eos % (Auto) 1.5 (0-4) % Baso % (Auto) 0.4 (0-2) % Lymph # (Auto) 1.5 (1.2-4.9) X10*3/uL [place] # (Auto) 0.7 (0.1-1.2) X10*3/uL Eos # (Auto) 0.1 (0.0-0.4) X10*3/uL Baso # (Auto) 0.0 (0.0-0.2) X10*3/uL Abs Immat Gran (auto) 0.01 (0.00-0.03) X10*3/uL Absolute Neuts (auto) 5.5 (2.0-8.3) x10*3/uL Absolute Nucleated RBC 0.000 (0.0-0.012) X10*3/uL Nucleated RBC % (auto) 0.0 (0.0-0.2) /100WBC PT 13.9 H (10.9-12.4) SEC INR 1.2 H (0.9-1.1) D-Dimer High Sensitivty < 150 NG/ML Sodium 140 (135-145) mmol/L Potassium 3.8 (3.3-5.1) mmol/L Chloride 108 (96-108) mmol/L Carbon Dioxide 24 (22-29) mmol/L Anion Gap 12 (12-20) BUN 12 (9-16) mg/dL Creatinine 0.67 (0.5-1.4) mg/dL Estim Creat Clear Calc 127.3 Estimated GFR > 60 Random Glucose 76 (60-115) mg/dL Calcium 9.0 (8.4-10.2) mg/dL Total Bilirubin 0.4 (0.0-1.0) mg/dL Direct Bilirubin 0.1 (0.0-0.5) mg/dL AST 18 (5-31) U/L ALT 16 (0-31) U/L Alkaline Phosphatase 58 (39-117) U/L Troponin I High Sens < 2.7 (<3.5-17.0) ng/L Total Protein 7.2 (6.5-8.0) g/dL Albumin 3.8 (3.5-5.0) g/dL Discharge Plan Discharge Clinical Impression: Anterior chest wall pain, Bilateral calf pain Patient Disposition: Home, Self-Care Instructions: Chest Wall Pain (ED), Leg Pain (ED) Additional Instructions: All of your screening labs including a cardiac enzymes were normal. There were no concerning changes on your EKG in the chest x-ray is clear. The ultrasound of your lower extremities was negative for DVT. You can continue to follow up with your primary care provider. Prescriptions: No Action Metamucil 3.4 gram/5.4 gram powder 1 tsp PO BID Qty: 660 0RF Rx Instructions: mix into at least 4 oz water or juice before administering Print Language: Bel[place]ian
[2024-11-05 17:47] VITALS: BP 131/55; PULSE 76; RESP 18; TEMP 37; O2SAT 100; BMI 31.7
[2024-11-05 18:05] LABS: MANUAL DIFF FLAG NO
[2024-11-05 18:06] LABS: Basophils Percent Auto 0.4 % (0-2); Eosinophils Absolute Auto 0.1 X10*3/uL (0.0-0.4); Eosinophils Percent Auto 1.5 % (0-4); Hematocrit 35.9 % (37.0-47.0); Hemoglobin 12.1 g/dl (12.0-16.0); Imm Gran Abs Auto 0.01 X10*3/uL (0.00-0.03); Imm Gran Pct Auto 0.1 % (0.0-0.4); Lymphocytes Absolute Auto 1.5 X10*3/uL (1.2-4.9); Lymphocytes Percent Auto 19.4 % (20-40); Mean Corpuscular HGB Conc 33.7 g/dl (31.0-35.0); Mean Corpuscular Volume 92.1 fL (80.0-98.0); Mean Platelet Volume 9.5 fL (9.4-12.3); Monocytes Absolute Auto 0.7 X10*3/uL (0.1-1.2); Monocytes Percent Auto 8.6 % (2-11); Neutrophils Absolute Auto 5.5 x10*3/uL (2.0-8.3); Platelet Count 276 X10*3/uL (160-400); Red Cell Distribution Width 12.8 % (11.0-16.0); White Blood Count 7.8 X10*3/uL (4.8-10.8)
[2024-11-05 18:19] LABS: INTERNATIONAL NORM RATIO 1.2 (0.9-1.1); Prothrombin Time 13.9 SEC (10.9-12.4)
[2024-11-05 18:24] LABS: D Dimer High Sensitivity < 150 NG/ML
[2024-11-05 18:32] LABS: Alanine Aminotransferase 16 U/L (0-31); Albumin Level 3.8 g/dL (3.5-5.0); Anion Gap 12 (12-20); Aspartate Amino Transferase 18 U/L (5-31); Bilirubin Direct 0.1 mg/dL (0.0-0.5); Bilirubin Total 0.4 mg/dL (0.0-1.0); Blood Urea Nitrogen 12 mg/dL (9-16); Carbon Dioxide 24 mmol/L (22-29); Chloride 108 mmol/L (96-108); Creatinine Clr Calc Pharmacy 127.3; Estimated Glomerular Filt Rate > 60; Glucose Random 76 mg/dL (60-115); Potassium 3.8 mmol/L (3.3-5.1); Sodium 140 mmol/L (135-145); Total Protein 7.2 g/dL (6.5-8.0)
[2024-11-05 19:15] LABS: Alkaline Phosphatase 58 U/L (39-117)
[2024-11-05 19:46] LABS: Troponin-I High Sensitivity < 2.7 ng/L (<3.5-17.0)
--- NOTE | 2024-11-05 21:15 | PC.NURSE ---
pt went off unit to U/S for LLE. pt came back to room. u/s tech pt refused U/S of L leg and demanded we u/s both legs. pt brought back to room with no U/S done. provider made aware.
[2024-11-05 21:36] VITALS: BP 109/58; PULSE 70; RESP 16; TEMP 36.8; O2SAT 98
--- NOTE | 2024-11-05 23:01 | PC.NURSE ---
pt returned from U/S, given water per request
[2024-11-06 00:10] VITALS: BP 109/59; PULSE 73; RESP 16; TEMP 36.7; O2SAT 97
[2024-11-06 00:11] VITALS: BP 109/59; PULSE 73; RESP 16; TEMP 36.7; O2SAT 97
== END 2024-11-06 00:11 | disposition home or self-care (01) ==
PROVIDERS: Nurse Practitioner Family; Emergency Provider Emergency Medicine; PCP Internal Medicine
DX: R07.89 Other chest pain (principal); M79.605 Pain in left leg; M79.604 Pain in right leg; E10.9 Type 1 diabetes mellitus without complications; Z79.899 Other long term (current) drug therapy
CPT/HCPCS: 36415; 71046; 80048; 80076; 84484; 85025; 85379; 85610; 93005; 93970; 99284

== ENCOUNTER → 2024-11-05 17:31 | Outpatient (BNV) | payer OTHER, SELFPAY | PROVIDERS: Emergency Provider Emergency Medicine; PCP Internal Medicine; Visit Provider Internal Medicine | DX: R07.9 Chest pain, unspecified (principal) | CPT/HCPCS: 93010 ==

== ENCOUNTER → 2024-11-05 17:48 | Outpatient (BNV) | payer OTHER, SELFPAY | PROVIDERS: Visit Provider Radiology Diagnostic Radiology | DX: R07.9 Chest pain, unspecified (principal) | CPT/HCPCS: 71046 ==

== ENCOUNTER 2025-04-05 17:12 | Emergency (ER) | payer OTHER, SELFPAY ==
[2025-04-05 17:47] VITALS: BP 140/70; PULSE 83; RESP 18; TEMP 37.1; O2SAT 100; BMI 32.1
[2025-04-05 19:09] VITALS: BP 112/47; PULSE 70; RESP 18; TEMP 37.2; O2SAT 100
[2025-04-05 20:23] LABS: D Dimer High Sensitivity < 150 NG/ML
--- NOTE | 2025-04-05 20:29 | ED_ITS ---
HPI - General Adult General Chief complaint: General Medical Stated complaint: Wants to R/O DVT on both legs Time Seen by Provider: 04/05/25 19:48 Source: patient Mode of arrival: ambulatory Limitations: no limitations History of Present Illness ED Provider: HPI narrative: Patient's history of diabetes complaining of bilateral calf pain at the site of ecchymosis after coming back on vacation asking for venous Doppler to rule out blood clots patient been to the ER at least 4 more times for similar presentation and had 4 venous Doppler done in last 12 months which were all negative. No risk factor for DVT Related Data Previous Rx's ?Medication ?Instructions ?Recorded psyllium husk 3.4 gram/5.4 gram 1 tsp PO BID #660 gram s 05/27/24 oral powder (Metamucil) Allergies Allergy/AdvReac Type Severity Reaction Status Date / Time No Known Allergies Allergy Verified 04/05/25 17:52 Review of Systems Review of Systems: Yes all other systems are reviewed and are negative PMF Past Medical History Medical History Type 1 diabetes Social History Social History Smoked in Last 30 Days: No Use of substances other than those prescribed or required for medical reasons: No Advance Directives: No Advance Directives Information Provided: No Do you have a plan to hurt others: No Plan Patient : No Physical Exam ED Vital Signs: Vital Signs - 24 hr 04/05/25 17:47 04/05/25 19:09 04/05/25 20:48 Temperature 98.7 F 99.0 F 97.8 F Pulse Rate 83 70 71 Respiratory Rate 18 18 13 Blood Pressure 140/70 H 112/47 L 123/82 Pulse Oximetry 100 100 100 Oxygen Delivery Method Room Air Room Air Room Air 04/05/25 20:55 Temperature 97.8 F Pulse Rate 71 Respiratory Rate 13 Blood Pressure 123/82 Pulse Oximetry 100 Oxygen Delivery Method Room Air BMI result Body Mass Index 32.1 Appearance: Alert. Oriented X3. No acute distress. Eyes: no pallor or icterus ENT: Pharynx normal Oral Mucosa moist tympanic membrane intact no erythema, Neck: Normal inspection. Neck supple. CVS: Normal heart rate and rhythm. Pulses normal. Respiratory: No respiratory distress. Equal air entry bilateral, no wheezing/rales/rhonchi Abd: soft, not tender Skin: Skin warm and dry. Normal skin color. Normal skin turgor. Extremities: No lower extremity edema, no calf tenderness small superficial ecchymotic lesion bilateral calf area Neuro: Oriented X 3. Medical Decision Making Medical Decision Making [facility] Narrative: Patient with small ecchymotic lesion likely from blunt trauma D-dimer negative low risk for PE DVT with multiple venous Doppler done in last 12 months negative Lab Data [facility] Lab Attestation statement: I reviewed the patient's lab results. Labs: Lab Results 04/05/25 Range/Units 20:10 D-Dimer High Sensitivty < 150 NG/ML Discharge Plan Discharge Clinical Impression: Bruising Patient Disposition: Home, Self-Care Instructions: Ecchymosis (ED) Additional Instructions: Clinically do not have any blood clots and blood report is also negative for blood clots You have superficial bruising of the calf area of unknown etiology You can apply ice you do not need any ultrasound Prescriptions: No Action Metamucil 3.4 gram/5.4 gram powder 1 tsp PO BID Qty: 660 0RF Rx Instructions: mix into at least 4 oz water or juice before administering Interventions: ED Discharge Assessment Last Done: 04/05/25 20:55 Discharge Date/Time: 04/05/25 20:56 Print Language: Croatian
[2025-04-05 20:48] VITALS: BP 123/82; PULSE 71; RESP 13; TEMP 36.6; O2SAT 100
[2025-04-05 20:55] VITALS: BP 123/82; PULSE 71; RESP 13; TEMP 36.6; O2SAT 100
== END 2025-04-05 20:56 | disposition home or self-care (01) ==
PROVIDERS: Emergency Provider Internal Medicine; PCP Internal Medicine
DX: S80.12XA Contusion of left lower leg, initial encounter (principal); S80.11XA Contusion of right lower leg, initial encounter; R60.0 Localized edema; X58.XXXA Exposure to other specified factors, initial encounter; Y93.9 Activity, unspecified; Y92.9 Unspecified place or not applicable; Y99.8 Other external cause status
CPT/HCPCS: 36415; 85379; 99283; 99284

== ENCOUNTER 2025-04-28 16:17 | Emergency (ER) | payer OTHER, SELFPAY ==
--- NOTE | 2025-04-28 | ECG_ITS ---
Test Reason : cp Blood Pressure : */* mmHG Vent. Rate : 76 BPM Atrial Rate : 76 BPM P-R Int : 156 ms QRS Dur : 72 ms QT Int : 378 ms P-R-T Axes : 47 16 23 degrees QTcB Int : 425 ms Normal sinus rhythm Normal ECG When compared with ECG of 05-Nov-2024 17:42, No significant change was found Referred By: Generic ED Physician Electronically Signed By: Giancarlo Thomas
--- NOTE | ~2025-04-28 | XR_ITS ---
EXAMINATION: XR CHEST CLINICAL INFORMATION: CP, SOB COMPARISON: November 05, 2024 TECHNIQUE: 2 views of the chest were obtained. FINDINGS: No significant abnormality is noted involving the heart, lungs, mediastinum, bony thorax or soft tissues. XR/XR chest 2V IMPRESSION: Unremarkable examination. Electronically signed by: Jordan Long MD 04/28/2025 05:00 PM EDT RP
[2025-04-28 16:20] VITALS: BP 141/64; PULSE 88; RESP 18; TEMP 36.8; O2SAT 99; BMI 32.7
--- NOTE | 2025-04-28 16:21 | ED.CHESTPAIN ---
HPI - Chest Pain General Chief Complaint: Chest Pain Stated Complaint: chest pain sharp Time Seen by Provider: 04/28/25 19:22 Source: patient Mode of arrival: ambulatory Limitations: no limitations History of Present Illness ED Provider: DR. Gutierrez HPI narrative: 29-year-old female with past medical history significant for T1 dm insulin dependent, Came in for evaluation of left-sided chest pain for few weeks, pain is localized around the left wrist, with no radiation, pain is not exertional, no clear aggravating or relieving factors, no coughing, no recent travel, no lower extremity swelling or tenderness, no history of PE/DVT, history of coronary artery disease, no family history of coronary artery disease in young age, no history of smoking, no history of hypertension. No recent chest injury or trauma. Patient like to walk on a regular basis as an exercise with no a chest pain or shortness of breath. No fever, no chills, no coughing. Related Data Previous Rx's ?Medication ?Instructions ?Recorded psyllium husk 3.4 gram/5.4 gram 1 tsp PO BID #660 grams 05/27/24 oral powder (Metamucil) Allergies Allergy/AdvReac Type Severity Reaction Status Date / Time No Known Allergies Allergy Verified 04/28/25 16:21 Review of Systems Review of Systems: All other systems are reviewed and are negative Constitutional: Reports as per HPI and Reports no additional constitutional complaints Eyes: Reports as per HPI and Reports no additional eye complaints Reports system reviewed and no additional complaints, except as documented Cardiovascular: Reports as per HPI and Reports no additional cardiovascular complaints Respiratory: Reports as per HPI and Reports no additional respiratory complaints Gastrointestinal: Reports as per HPI and Reports no additional gastrointestinal complaints Genitourinary: Reports no additional female genitourinary complaints Musculoskeletal: Reports no additional musculoskeletal complaints Skin/Breast: Reports system reviewed and no additional complaints, except as docu Psychiatric: Reports no additional psychiatric complaints Endocrine: Reports no additional endocrine complaints Hematologic/Lymphatic: Reports no additional hematologic/lymphatic complaints Allergic/Immunologic: Reports no additional allergic/immunologic complaints Reports system reviewed and no additional complaints, except as documented and Reports Abnormal speech present [facility] Past Medical History Medical History Type 1 diabetes Social History Social History Advance Directives: No Advance Directives Information Provided: No Do you have a plan to hurt others: No Plan Physical Exam Vital Signs: Vital Signs: Last Vital Signs Temp 98.6 F 04/28/25 20:00 Pulse 71 04/28/25 20:00 Resp 16 04/28/25 20:00 BP 112/56 L 04/28/25 20:00 Pulse Ox 100 04/28/25 20:00 O2 Del Method Room Air 04/28/25 20:00 BMI result Body Mass Index 32.7 Vital signs have been reviewed and appear to be correct. Blood pressure elevated. Heart rate normal. Respiratory rate normal. Temperature normal. Oxygen saturation normal. Appearance: Alert. Oriented X3. No acute distress. Head: Normal external exam. Normocephalic. Atraumatic. No Rivas signs noted. No raccoon eyes noted Eyes: PERRLA. EOMI. Conjunctiva and sclera normal. Eyelids normal. ENT: TM's Normal. Pharynx normal. Uvula midline. Moist mucous membranes. No trismus noted. No drooling noted. No muffled voice noted. Neck: Normal inspection. Neck supple. FROM. No adenopathy. Thyroid Normal. No meningeal signs. No neck mass noted. CVS: Normal heart rate and rhythm. Heart sound normal. No murmurs noted. Pulses normal throughout. Respiratory: No respiratory distress. Painless inspiration. Breath sounds normal. No wheezes/rales/rhonchi noted, reproducible tenderness to the left chest wall, no step-off, No accessory muscle usage noted or decreased air movement noted. Abdomen: Soft and nontender. Bowel sounds normal in all 4 quadrants. No distention noted. No organomegaly noted. No visible injury noted. Back: No CVA tenderness. Full range of motion noted. Skin: Skin warm and dry. Normal skin color. Normal skin turgor. No rashes/lesions/lacerations noted. Extremities: No lower extremity edema. Extremities exhibit normal range of motion. Extremities nontender. Neuro: Oriented X 3. Cranial nerve exam: II-XII are grossly intact No motor deficit. No sensory deficit. Reflexes normal. Course Course Course Narrative: This is an RME: Additional HPI, ROS, PE not included below will be deferred to primary provider. RME assessment and note performed by: Dawna Minaya PA-C This is a [id number]-female who presents to the ER with complaint of sharp chest pain and shortness of breath. Reports no nausea. Plan: Labs, further ER eval needed Reevaluation(s) Reevaluation #1: Left-sided chest pain, ACS is not likely in light of normal EKG and normal troponin x2, no risk for pulmonary embolism with negative D-dimer. Reproducible tenderness to the left chest wall most likely diagnosis is chest wall pain Time: 20:31 Medical Decision Making Differential Diagnosis Differential Diagnoses: The differential diagnosis associated with the presentation includes (Pulmonary embolism, ACS, chest wall tenderness, pneumonia, pneumothorax, pleural effusion, electrolyte derangement, severe anemia.) Admission/Observation Consideration of admission/observation: Escalation of care including admission/observation considered Lab Data MDM Lab Attestation statement: I reviewed the patient's lab results. 04/28/25 16:43 04/28/25 16:43 Labs: Lab Results 04/28/25 04/28/25 Range/Units 16:43 20:01 WBC 7.7 (4.8-10.8) X10*3/uL RBC 3.95 L (4.20-5.50) X10*6/uL Hgb 12.2 (12.0-16.0) g/dl Hct 35.8 L (37.0-47.0) % MCV 90.6 (80.0-98.0) fL MCH 30.9 (27.0-33.0) pg MCHC 34.1 (31.0-35.0) g/dl RDW 12.9 (11.0-16.0) % Plt Count 258 (160-400) X10*3/uL MPV 9.7 (9.4-12.3) fL Immature Gran % (Auto) 0.4 (0.0-0.4) % Neut % (Auto) 73.2 H (45-73) % Lymph % (Auto) 16.3 L (20-40) % [place] % (Auto) 8.4 (2-11) % Eos % (Auto) 1.3 (0-4) % Baso % (Auto) 0.4 (0-2) % Lymph # (Auto) 1.3 (1.2-4.9) X10*3/uL [place] # (Auto) 0.7 (0.1-1.2) X10*3/uL Eos # (Auto) 0.1 (0.0-0.4) X10*3/uL Baso # (Auto) 0.0 (0.0-0.2) X10*3/uL Abs Immat Gran (auto) 0.03 (0.00-0.03) X10*3/uL Absolute Neuts (auto) 5.7 (2.0-8.3) x10*3/uL Absolute Nucleated RBC 0.000 (0.0-0.012) X10*3/uL Nucleated RBC % (auto) 0.0 (0.0-0.2) /100WBC PT 13.6 H (10.9-12.4) SEC INR 1.2 H (0.9-1.1) D-Dimer High Sensitivty < 150 NG/ML Sodium 137 (135-145) mmol/L Potassium 4.1 (3.3-5.1) mmol/L Chloride 106 (96-108) mmol/L Carbon Dioxide 25 (22-29) mmol/L Anion Gap 10 L (12-20) BUN 14 (9-16) mg/dL Creatinine 0.63 (0.5-1.4) mg/dL Estim Creat Clear Calc 142.7 Estimated GFR > 60 Random Glucose 122 H (60-115) mg/dL Calcium 8.8 (8.4-10.2) mg/dL Total Bilirubin 0.4 (0.0-1.0) mg/dL Direct Bilirubin 0.2 (0.0-0.5) mg/dL AST 21 (5-31) U/L ALT 17 (0-31) U/L Alkaline Phosphatase 58 (39-117) U/L Troponin I High Sens < 2.7 < 2.7 (<3.5-17.0) ng/L Total Protein 7.2 (6.5-8.0) g/dL Albumin 4.3 (3.5-5.0) g/dL Beta HCG, Quant < 2 mIU/mL Influenza Type A (PCR) NEGATIVE (Negative) Influenza Type B (PCR) NEGATIVE (Negative) RSV RNA Qual (PCR) NEGATIVE (Negative) SARS-CoV-2 RNA (RT-PCR) NEGATIVE (Negative) Independent Interpretation I performed an independent interpretation of an: EKG (Normal sinus rhythm at 76 beats per minutes, normal intervals, no ST-T changes, no old EKG to compare.) and Plain X-Ray (Chest: Unremarkable examination) Radiology Impression Discussion of test interpretation with radiology: I have reviewed the radiologist's reading. Discharge Plan Discharge Clinical Impression: Chest wall pain Patient Disposition: Home, Self-Care Instructions: Chest Wall Pain (ED) Prescriptions: No Action Metamucil 3.4 gram/5.4 gram powder 1 tsp PO BID Qty: 660 0RF Rx Instructions: mix into at least 4 oz water or juice before administering Referrals: Ira Saunders MD [Primary Care Provider, Medical] Print Language: [place] Islander
[2025-04-28 16:49] LABS: MANUAL DIFF FLAG NO
[2025-04-28 16:55] LABS: Hematocrit 35.8 % (37.0-47.0); Hemoglobin 12.2 g/dl (12.0-16.0); Imm Gran Abs Auto 0.03 X10*3/uL (0.00-0.03); Imm Gran Pct Auto 0.4 % (0.0-0.4); Lymphocytes Absolute Auto 1.3 X10*3/uL (1.2-4.9); Mean Corpuscular HGB Conc 34.1 g/dl (31.0-35.0); Mean Corpuscular Hemoglobin 30.9 pg (27.0-33.0); Mean Corpuscular Volume 90.6 fL (80.0-98.0); NRBC Abs Auto 0.000 X10*3/uL (0.0-0.012); NRBC Pct Auto 0.0 /100WBC (0.0-0.2); Platelet Count 258 X10*3/uL (160-400); Red Blood Count 3.95 X10*6/uL (4.20-5.50); White Blood Count 7.7 X10*3/uL (4.8-10.8)
[2025-04-28 17:06] LABS: Alanine Aminotransferase 17 U/L (0-31); Albumin Level 4.3 g/dL (3.5-5.0); Alkaline Phosphatase 58 U/L (39-117); Anion Gap 10 (12-20); Aspartate Amino Transferase 21 U/L (5-31); Blood Urea Nitrogen 14 mg/dL (9-16); Calcium 8.8 mg/dL (8.4-10.2); Carbon Dioxide 25 mmol/L (22-29); Chloride 106 mmol/L (96-108); Creatinine Clr Calc Pharmacy 142.7; Estimated Glomerular Filt Rate > 60; Potassium 4.1 mmol/L (3.3-5.1); Sodium 137 mmol/L (135-145); Total Protein 7.2 g/dL (6.5-8.0)
[2025-04-28 17:17] LABS: Troponin-I High Sensitivity < 2.7 ng/L (<3.5-17.0)
[2025-04-28 17:28] LABS: Resp Syncy Virus RNA Qual PCR NEGATIVE (Negative); SARS COV2 PCR INHOUSE NEGATIVE (Negative)
[2025-04-28 18:17] LABS: INTERNATIONAL NORM RATIO 1.2 (0.9-1.1); Prothrombin Time 13.6 SEC (10.9-12.4)
[2025-04-28 19:07] VITALS: BP 109/56; PULSE 75; RESP 16; TEMP 36.6; O2SAT 100
--- OUTSIDE RECORDS SUMMARY | 2025-04-28 19:20 | XMS_ITS | Clinical Summary ---
Author Organization [address] Address [address] [place] [address] Phone Care Team Providers Care Forge Heater Name Role Phone Physician, Pcp Unknown Primary Care Provider Linh vailable Social History Tobacco Use Types Packs/Day Years Used Date Smoking Tobacco: Never Assessed Comments Unknown Sex and Gender Information Value Date Recorded Sex Assigned at Not on file Legal Sex Female 9:35 AM EST Gender Identity Not on file Sexual Orientation Not on file Plan of Treatment Health Maintenance Due Date Last Done Comments DTaP,Tdap,and Td Vaccines (1 - Tdap) 2012 Hepatitis B Vaccines (1 of 3 - 19+ 3-dose series) 2012 Cervical Cancer Screening: P ap Smear 2014 HIV Screening 09/02/2022 Hepatitis C Screening 09/02/2022 Social Influencers of Health Screening 09/02/2022 COVID-19 Vaccine ( - 2023-2 5 season) 2024 Depression Screening 10/06/2024 Influenza Vaccine (#1) 2025 HIB Vaccines Aged Out No longer eligi ble based on patient's age to complete this topic HPV Vaccines Aged Out No longer eligi ble based on patient's age to complete this topic Hepatitis A Vaccines Aged Out No long er eligible based on patient's age to complete this topic IPV Vaccines Aged Out No longer eligi ble based on patient's age to complete this topic MMR Vaccines Aged Out No longer eligi ble based on patient's age to complete this topic Meningococcal ACWY Vaccine Aged Out N o longer eligible based on patient's age to complete this topic Meningococcal B Vaccine Aged Out No l onger eligible based on patient's age to complete this topic Pneumococcal Vaccine: Pediat rics (0 to 5 Years) and At-Risk Patients (6 to 49 Years) Aged Out No longer eligible b ased on patient's age to complete this topic RSV Immunization Patients Un gustavo 20 months Aged Out No longer eligible b ased on patient's age to complete this topic Varicella Vaccines Aged Out No longer eligible based on patient's age to complete this topic Insurance [facility] [address] [place] [address] Care Teams Forge Heater Relationship Specialty Start Date End Date Physician, Pcp Unknown PCP - General 12/31/24
[2025-04-28 20:00] VITALS: BP 112/56; PULSE 71; RESP 16; TEMP 37; O2SAT 100
[2025-04-28 20:28] LABS: D Dimer High Sensitivity < 150 NG/ML; Troponin-I High Sensitivity < 2.7 ng/L (<3.5-17.0)
[2025-04-28 20:35] VITALS: BP 112/56; PULSE 71; RESP 16; TEMP 37; O2SAT 100
== END 2025-04-28 20:35 | disposition home or self-care (01) ==
PROVIDERS: Physician Assistant Medical; Emergency Provider Emergency Medicine; PCP Internal Medicine
DX: R07.89 Other chest pain (principal); E10.9 Type 1 diabetes mellitus without complications; R06.02 Shortness of breath; M25.532 Pain in left wrist
CPT/HCPCS: 36415; 71046; 80048; 80076; 84484; 84702; 85025; 85379; 85610; 87637; 93005; 99283; 99284

== ENCOUNTER → 2025-04-28 16:23 | Outpatient (BNV) | payer OTHER, SELFPAY | PROVIDERS: PCP Internal Medicine; Visit Provider Radiology Diagnostic Radiology | DX: R07.9 Chest pain, unspecified (principal) | CPT/HCPCS: 71046 ==

== ENCOUNTER → 2025-04-28 16:32 | Outpatient (BNV) | payer OTHER, SELFPAY | PROVIDERS: Emergency Provider Emergency Medicine; PCP Internal Medicine; Visit Provider Internal Medicine Cardiovascular Disease | DX: R07.89 Other chest pain (principal) | CPT/HCPCS: 93010 ==

== ENCOUNTER 2025-07-07 11:56 | Emergency (ER) | payer OTHER, SELFPAY ==
[2025-07-07] VITALS (7 sets, daily range): BP systolic 101–158; BP diastolic 44–87; PULSE 70–94; RESP 16–18; TEMP 36.6–36.7; O2SAT 95–100; BMI 41.3
--- NOTE | ~2025-07-07 | CT_ITS ---
CLINICAL HISTORY: dizziness CT head without contrast Comparison: None available Findings: No acute hemorrhage. No extra-axial fluid collection. No hydrocephalus, mass-effect or herniation. Bernardo-white differentiation is maintained. White matter is within normal limits for age. No acute orbital pathology. No acute soft tissue abnormality. Multifocal scalp scarring. No fracture. The visualized paranasal sinuses are predominantly clear. The mastoid air cells are clear. Impression: No acute findings. This document has been electronically signed by: Tracy Maravilla MD on 07/07/2025 18:12:02
--- NOTE | 2025-07-07 13:32 | ECG_ITS ---
Test Reason : Chest pain Blood Pressure : */* mmHG Vent. Rate : 77 BPM Atrial Rate : 77 BPM P-R Int : 138 ms QRS Dur : 76 ms QT Int : 398 ms P-R-T Axes : 64 13 28 degrees QTcB Int : 450 ms Normal sinus rhythm Cannot rule out Anterior infarct , age undetermined Abnormal ECG When compared with ECG of 28-Apr-2025 16:32, No significant change was found Referred By: Generic ED Physician Electronically Signed By: TED BELTRAN
[2025-07-07 14:02] LABS: MANUAL DIFF FLAG NO
[2025-07-07 14:05] LABS: Hematocrit 34.9 % (37.0-47.0); Hemoglobin 12.0 g/dl (12.0-16.0); Imm Gran Abs Auto 0.02 X10*3/uL (0.00-0.03); Imm Gran Pct Auto 0.3 % (0.0-0.4); Lymphocytes Absolute Auto 0.7 X10*3/uL (1.2-4.9); Mean Corpuscular HGB Conc 34.4 g/dl (31.0-35.0); Mean Corpuscular Hemoglobin 30.5 pg (27.0-33.0); Mean Corpuscular Volume 88.8 fL (80.0-98.0); NRBC Abs Auto 0.000 X10*3/uL (0.0-0.012); NRBC Pct Auto 0.0 /100WBC (0.0-0.2); Platelet Count 257 X10*3/uL (160-400); Red Blood Count 3.93 X10*6/uL (4.20-5.50); White Blood Count 7.4 X10*3/uL (4.8-10.8)
[2025-07-07 14:16] LABS: Anion Gap 8 (12-20); Blood Urea Nitrogen 9 mg/dL (9-16); Calcium 8.6 mg/dL (8.4-10.2); Carbon Dioxide 28 mmol/L (22-29); Chloride 107 mmol/L (96-108); Creatinine Clr Calc Pharmacy 153.7; Estimated Glomerular Filt Rate > 60; Potassium 3.8 mmol/L (3.3-5.1); Sodium 139 mmol/L (135-145)
--- OUTSIDE RECORDS SUMMARY | 2025-07-07 14:18 | XMS_ITS | Encounter Summary ---
Author Organization [facility] Address [address] [address] Phone Care Team Providers Care Account Liaison Name Role Phone Ira Saunders MD Primary Care Provider [phone] Encounter Details Date Type Department Care Team (Late Contact Info) Description 10/20/2024 Office Communication [facility] [address] [place] [phone] Yvrose Devine ARNP [address] [place] [phone] Social History Tobacco Use Types Packs/Day Years Used Date Smoking Tobacco: Never Smokeless Tobacco: Never Alcohol Use Standard Drinks/Week Comments Never 0 (1 standard drink = 0.6 oz pur e alcohol) Comments Unknown Sex and Gender Information Value Date Recorded Sex Assigned at Not on file Legal Sex Female 1:40 PM EDT Gender Identity Not on file Sexual Orientation Not on file documented as of this encounter Plan of Treatment Upcoming Encounters Date Type Department Care Team (Late Contact Info) Description 07/13/2025 1:30 PM EDT Office Visit [facility] [address] [phone] Rafat Albrecht MD [address] [phone] documented as of this encounter Visit Diagnoses Not on filedocumented in this encounter Care Teams Account Liaison Relationship Specialty Start Date End Date Ira Saunders MD [address] [place] [address] PCP - General Internal Medicine 05/08/23 documented as of this encounter
--- OUTSIDE RECORDS SUMMARY | 2025-07-07 14:18 | XMS_ITS | Clinical Summary ---
Author Organization [address] [facility] Address [address] [place] [address] Phone Care Team Providers Care Museum Docent Name Role Phone Ira Saunders MD Primary Care Provider [phone] Encounters Date Type Department Care Team Description 05/11/2025 Telephone [facility] Cardiology [facility] [address] [place] [address] Ira Saunders MD from Last 3 Months Social History Tobacco Use Types Packs/Day Years Used Date Smoking Tobacco: Never Assessed Comments Unknown Sex and Gender Information Value Date Recorded Sex Assigned at Not on file Legal Sex Female 9:35 AM EST Gender Identity Not on file Sexual Orientation Not on file Plan of Treatment Health Maintenance Due Date Last Done Comments Diabetes: Annual GFR (Glomer ular Filtration Rate) 1993 Diabetes: Annual Foot Exam 2003 Diabetes: Annual Retina Eye Exam 2003 DTaP,Tdap,and Td Vaccines (1 - Tdap) 2012 Hepatitis B Vaccines (1 of 3 - 19+ 3-dose series) 2012 Pneumococcal Vaccine: Pediat rics (0 to 5 Years) and At-Risk Patients (6 to 49 Years) (1 of 2 - PCV) 2012 Cervical Cancer Screening: P ap Smear 2014 HPV Vaccines (1 - 3-dose SCD M series) 2020 Cholesterol Screening (Lipid Panel) 09/02/2022 HIV Screening 09/02/2022 Hepatitis C Screening 09/02/2022 Social Influencers of Health Screening 09/02/2022 Depression Screening 10/06/2024 Diabetes: Annual Urine Albumin-Creatinine Ratio (uACR) 05/11/2025 Diabetes: Blood Sugar Contro l Test (HGBA1C) 05/11/2025 COVID-19 Vaccine (1 - 2023-2 5 season) 2025 Influenza Vaccine (#1) 2025 RSV Immunization Adult Patie nts (1 - 1-dose 75+ series) 2068 HIB Vaccines Aged Out No longer eligi [...] patient's age to complete this topic Insurance [facility] Care Teams Museum Docent Relationship Specialty Start Date End Date Ira Saunders MD [address] [place] [phone] PCP - General Internal Medicine 05/11/25
--- OUTSIDE RECORDS SUMMARY | 2025-07-07 14:18 | XMS_ITS | Encounter Summary ---
Author Organization [facility] Address [address] [place] [address] Care Team Providers Care Assistant Community Manager Name Role Phone Ira Saunders MD Primary Care Provider [phone] Encounter Details Date Type Department Care Team (Late st Contact Info) Description 12/31/2024 Lab Requisition [facility] - Main Lab [address] [facility] [place] [address] Dwain Kumari PA [address] [place] [phone] Gross hematuria Social History Tobacco Use Types Packs/Day Years Used Date Smoking Tobacco: Never Assessed Comments Unknown Sex and Gender Information Value Date Recorded Sex Assigned at Not on file Legal Sex Female 9:35 AM EST Gender Identity Not on file Sexual Orientation Not on file documented as of this encounter Plan of Treatment Not on file documented as of this encounter Procedures Procedure Name Priority Date/Time Associated Diagnosis Comments AP OUTSIDE CONSULT Routine 12/28/2024 12 :00 AM EDT Gross hematuria documented in this encounter Results * Anatomic pathology outside consult (12/28/2024 12:00 AM EDT) Final Diagnosis A. Urine, Voided, ([id number]): Negative for high grade urothelial carcinoma. Results of UroVysion fluorescence in situ hybridization (FISH) testing: CEP3: Normal CEP7: Normal CEP17: Normal LSI 9p21: Normal Interpretation: Normal profile Controls stained appropriately. Note: The results are intended as a screening device and should be interpreted in association with other clinical and pathological findings. 01/06/2025 4:18 PM EDT [facility] Clinical Information Gross hematuria R31.0 Urine Cytology/FISH (now) 01/06/2025 4:18 PM EDT [facility] Gross Description A. Urine, Voided, ([id number]): Received one ThinPrep slide for cytology and one ThinPrep slide for U[employer]ion FISH 01/06/2025 4:18 PM EDT [facility] Disclaimer Unless otherwise specified, all tissue is 10% NB formalin fixed and paraffin embedded. Technical pathology services provided by [facility] at [address], [place] [address] (CLIA #[id number]/Nneka Gonzalez MD, Edging Catcher) 01/06/2025 4:18 PM EDT [facility] Tissue Urine specimen from urethra / Unknown 12/28/2024 12/31/2024 4:21 PM EDT us Dwain TAYLOR LAB PATHOLOGY ORDERABLES Final Result [facility] [address] [place] [address], documented in this encounter Visit Diagnoses Diagnosis Gross hematuria documented in this encounter Care Teams Assistant Community Manager Relationship Specialty Start Date End Date Ira Saunders MD [address] [place] [address] PCP - General Internal Medicine 05/11/25 documented as of this encounter
--- OUTSIDE RECORDS SUMMARY | 2025-07-07 14:18 | XMS_ITS | Clinical Summary ---
Author Organization [facility] Address [address] [place] [phone] Phone Care Team Providers Care Maintenance Foreman Name Role Phone Ira Saunders MD Primary Care Provider [phone] Allergies No known active allergies Medications glucose 4 g chewable tablet Chew 16 g if needed for low blood sugar Active Insulin Lispro, 1 Unit Dial, 100 UNIT/ML solution pen-injector Inject under the skin Active ferrous sulfate 325 (65 Fe) MG EC tablet Take 1 tablet by mouth 1 (one) time each day 02/03/2024 Active Continuous Glucose Transmitter (Dexcom G6 Transmitter) misc 03/17/2024 Active lisinopril 5 MG tabletIndication s:Proteinuria, not otherwise specified Take 1 tablet (5 mg total) by mouth 1 (one) time each day 90 tablet 3 05/05/2025 Active Active Problems Problem Noted Date Diagnosed Date Degeneration of thoracolumbar intervertebral dis c 04/15/2024 Overview (04/15/2024): on MRI T12-L1 Severe obesity 04/15/2024 Venous hypertension of lower limb 04/15/2024 Proteinuria, not otherwise specified 04/15/2024 Hematochezia 07/29/2023 07/29/2023 Vitamin D deficiency 07/28/2023 07/28/2023 Type 1 diabetes mellitus 07/28/2023 023 Patient care statuses 07/28/2023 07/28/2023 Overweight 07/28/2023 07/28/2023 Obese class II 07/28/2023 07/28/2023 Backache 07/28/2023 07/28/2023 Anti-nuclear factor detected 07/28/2023 Recurrent and persistent hem aturia with minimal change lesion 05/29/2023 Encounters Date Type Department Care Team Description 07/04/2025 Office Communication [facility] [address] [phone] Marva Day 05/19/2025 Results Follow-Up [facility] [address] [address] Rafat Albrecht MD 05/05/2025 4:30 PM EDT Office Visit [facility] [address] [phone] Rafat Albrecht MD Proteinuria, not otherwise specified (Primary Dx); 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); Hematuria, not otherwise specified from Last 3 Months Immunizations Immunization Administration Dates Next Due Hepatitis B 10/14/2018,05/21/2018,09/20/2016 Influenza Whole 07/21/2020 Influenza, Unspecified 08/07/2022,2020,06/16/2018,12/05/2017,08/07,08/10/2015 Meningococcal, Unspecified 02/01/2020 Moderna SARS-COV-2 12/04/2020,11/06/2020 Pneumococcal Polysaccharide 09/20/2016 Tdap 08/04/2014 Family History Medical History Relation Comments Hypertension Brother Hypertension Father Hypertension Mother Relation Status Comments Brother Father Mother Social History Tobacco Use Types Packs/Day Years Used Date Smoking Tobacco: Never Smokeless Tobacco: Never Tobacco Cessation:Counseling Given: Not Answered Alcohol Use Standard Drinks/Week Comments Never 0 (1 standard drink = 0.6 oz pur e alcohol) Comments Unknown Sex and Gender Information Value Date Recorded Sex Assigned at Not on file Legal Sex Female 1:40 PM EDT Gender Identity Not on file Sexual Orientation Not on file Last Filed Vital Signs Vital Sign Reading Time Taken Comments Blood Pressure 108/54 05/05/2025 4:40 PM EDT Pulse 104 05/05/2025 4:40 PM EDT Temperature - - Respiratory Rate - - Oxygen Saturation 99% 07/29/2023 1:08 PM EDT Inhaled Oxygen Concentration - - Weight 87.5 kg (193 lb) 12/20/2024 2:59 PM EDT Height - - Body Mass Index - - Plan of Treatment Upcoming Encounters Date Type Department Care Team (Rosalino st Contact Info) Description 07/13/2025 1:30 PM EDT Office Visit [facility] [address] [phone] Rafat Albrecht MD [address] [phone] Health Maintenance Due Date Last Done Comments Hepatitis B Vaccine (1 of 3 - 19+ 3-dose series) 2012 10/14/2018, 05/21/2018, 09/20/2016 Pneumococcal Vaccine: Peds ( 0 to 5 Years) and At-Risk Patients (6 to 49 Years) (2 of 2 - PCV) 09/20/2017 09/20/2016 Diabetes: Ophthalmology Exam 05/29/2023 Diabetes: Pedal Pulse Checked 05/29/2023 Diabetes: Sensory Foot Exam 05/29/2023 Diabetes: Visual Foot Exam 05/29/2023 Diabetes: Hemoglobin A1C 06/04/202403/04/2 024, 07/29/2023, 05/14/2023 Influenza Vaccine (#1) 2025 2, 06/17/2021, 07/21/2020, Additional history exists Procedures Procedure Name Priority Date/Time Associated Diagnosis Comments US RENAL LIMITED Routine 06/20/2025 11:0 1 AM EDT 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) BASIC METABOLIC PANEL Routine 05/11/2025 1:09 PM EDT Proteinuria, not otherwise specified URINE ALBUMIN / CREATININE RATIO Routine 05/11/2025 1:02 PM EDT Proteinuria, not otherwise specified PROTEIN / CREATININE RATIO, URINE Routine 05/11/2025 1:02 PM EDT Proteinuria, not otherwise specified URINALYSIS WITH MICROSCOPIC Routine 05/11/2025 1:02 PM EDT Proteinuria, not otherwise specified RENAL FUNCTION PANEL Routine 05/11/2025 1:02 PM EDT Proteinuria, not otherwise specified MICROSCOPIC EXAMINATION - DO NOT USE Routine 05/11/2025 1:02 PM EDT HEMOGLOBIN A1C Routine 03/04/2024 2:51 PM EDT 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) from Last 3 Months or Most Recently Relevant to Health Maintenance Results * Ultrasound renal limited (06/20/2025 11:01 AM EDT) Anatomical Region Laterality Modality Body Ultrasound Rafat Albrecht MD [facility] [place] PROCEDURES Final Result * (ABNORMAL) Basic metabolic panel (05/11/2025 1:09 PM EDT) Glucose 164(H) 70 - 99 mg/dL [facility] BUN 11 6 - 20 mg/dL [facility] Creatinine 0.62 0.57 - 1.00 mg/dL [facility] eGFR CKD-EPI CR 2020 122 >59 mL/min/1.7 3 [facility] BUN/Creatinine Ratio 18 9 - 23 [facility] Sodium 135 134 - 144 mmol/L [facility] Potassium 4.3 3.5 - 5.2 mmol/L [facility] Chloride 102 96 - 106 mmol/L [facility] Bicarbonate (CO2) 20 20 - 29 mmol/L [facility] Calcium 8.6(L) 8.7 - 10.2 mg/dL [facility] Blood Venous blood / Unknown 05/11/2025 1:09 PM EDT 05/11/2025 Rafat Albrecht MD LAB BLOOD ORDERABLES Final Resul t [facility] [address] [place] [address] * Microscopic Examination (05/11/2025 1:02 PM EDT) WBC, Urine None seen 0 - 5 /hpf [facility] RBC, Urine None seen 0 - 2 /hpf [facility] Squamous Epithelial, Urine None seen 0 - 10 /hpf [facility] Casts None seen None seen /lpf [facility] Bacteria, Urine None seen None seen/Few [facility] 05/11/2025 1:02 PM EDT 05/11/2025 Yv[facility] LAB MICROBIOLOGY - GENERAL ORDERABLES Final Result Performing Organization Address City/[facility]/ZIP Co de Phone Number [facility] [address] [place] [phone] * (ABNORMAL) Urine Protein / creatinine ratio (05/11/2025 1:02 PM EDT) Creatinine, Ur 14.0 Not Estab. mg/dL [facility] Protein, Ur <4.0 Not Estab. mg/dL [facility] Comment:Verified by repeat analysis Urine Protein/Creatinin e Ratio Comment(A ) 0 - 200 mg/g creat [facility] Comment: This result is below the assay's limit of quantitation indicating a dilute specimen, potentially due to diurnal variation. Consider recollection at a time likely to provide a more concentrated urine. Urine specimen (specimen) Urine specimen obtained by clean catch procedure / Unknown 05/11/2025 1:02 PM EDT 05/11/2025 Yvrose [facility] LAB URINE ORDERABLES Final Result Performing Organization Address City/[facility]/ZIP Co de Phone Number [facility] [address] [place] [address] * Urine Albumin / Creatinine Ratio (05/11/2025 1:02 PM EDT) Pathologist [facility] Albumin, Urine <3.0 Not Estab. ug/mL [facility] Albumin/Creatin ine Ratio <21 0 - 29 mg/g creat [facility] Comment: Normal: 0 - 29 Moderately increased: 30 - 300 Severely increased: >300 Urine specimen (specimen) Urine specimen obtained by clean catch procedure / Unknown 05/11/2025 1:02 PM EDT 05/11/2025 [facility] LAB URINE ORDERABLES Final Result Performing Organization Address [facility] de Phone Number [facility] [address] [place] [address] * (ABNORMAL) Urinalysis with microscopic (05/11/2025 1:02 PM EDT) Pathologist [facility] Specific [place], Urine 1.005 1.005 - 1.030 [facility] [phone] pH Urine 6.5 5.0 - 7.5 [facility] [phone] Color, Urine Yellow Yellow [facility] [phone] Appearance Urine Clear Clear [facility] WBC Esterase Urine Negative Negative [facility] [phone] Protein, Ur Negative Negative/Tra ce [facility] Glucose, Ur Negative Negative [facility] [phone] Ketones, Urine Negative Negative [facility] [phone] Blood Urine Trace(A) Negative [facility] Bilirubin Urine Negative Negative [facility] Urobilinogen Urine 0.2 0.2 - 1.0 mg/dL [facility] Nitrite, Urine Negative Negative [facility] [phone] Microscopic Examination See below: [facility] Comment:Microscopic was javier cated and was performed. Urine specimen (specimen) Urine specimen obtained by clean catch procedure / Unknown 05/11/2025 1:02 PM EDT 05/11/2025 us Yvrose Devine [facility] LAB URINE ORDERABLES Final Result [facility] [address] [place] [address] * (ABNORMAL) Renal function panel (05/11/2025 1:02 PM EDT) Glucose 165(H) 70 - 99 mg/dL [facility] BUN 12 6 - 20 mg/dL [facility] Creatinine 0.64 0.57 - 1.00 mg/dL [facility] eGFR CKD-EPI CR 2020 121 >59 mL/min/1.7 3 [facility] BUN/Creatinine Ratio 19 9 - 23 [facility] Sodium 135 134 - 144 mmol/L [facility] Potassium 4.4 3.5 - 5.2 mmol/L [facility] Chloride 101 96 - 106 mmol/L [facility] Bicarbonate (CO2) 21 20 - 29 mmol/L [facility] Calcium 8.8 8.7 - 10.2 mg/dL [facility] Phosphorus 3.3 3.0 - 4.3 mg/dL [facility] Albumin 4.2 3.9 - 4.9 g/dL [facility] Blood specimen (specimen) Venous blood / Unknown 05/11/2025 1:02 PM EDT 05/11/2025 Y[facility] LAB BLOOD ORDERABLES Final Result [facility] [address] [place] [address] * (ABNORMAL) Hemoglobin A1c (03/04/2024 2:51 PM EDT) Hemoglobin A1C 7.5(H) 4.8 - 5.6 % See order comments Comment: Prediabetes: 5.7 - 6.4 Diabetes: >6.4 Glycemic control for adults with diabetes: <7.0 Blood specimen (specimen) Venous blood / Unknown 03/04/2024 2:51 PM EDT 03/04/2024 Narrative [facility] - 03/05/2024 10:07 AM EDT Performed at: - [address] [id number] Rda: Noelle Ferguson MD, Phone: [phone] Lucila Saab MD LAB BLOOD ORDERABLES Final Result Performing Organization Address City/[facility]/ZIP Co de Phone Number [facility] See order comments [place] [address] from Last 3 Months or Most Recently Relevant to Health Maintenance Insurance [employer] Medicaid [employer] Medicaid Care Teams Maintenance Foreman Relationship Specialty Start Date End Date Ira Saunders MD [address] [place] [address] PCP - General Internal Medicine 05/08/23
--- OUTSIDE RECORDS SUMMARY | 2025-07-07 14:19 | XMS_ITS | Encounter Summary ---
Author Organization [facility] Address [address] [phone] Phone Care Team Providers Care Slab Conditioner Supervisor Name Role Phone Ira Saunders MD Primary Care Provider [phone] Encounter Details Date Type Department Care Team (Late Contact Info) Description 07/04/2025 Office Communication [facility] [address] [phone] Marva Day [address] [phone] Social History Tobacco Use Types Packs/Day [...] on file documented as of this encounter Miscellaneous Notes * Telephone Encounter - Marva Day - 07/04/2025 2:07 PM EDT Pt calling and states she had done [facility] and she had voicemail from you and she is waiting for your call.Thank you documented in this encounter Plan of Treatment Upcoming Encounters Date Type Department Care Team (Late Contact Info) Description 07/13/2025 1:30 PM EDT Office Visit [facility] [address] [address] Rafat Albrecht MD [address] [phone] documented as of this encounter Visit Diagnoses Not on filedocumented in this encounter Care Teams Slab Conditioner Supervisor Relationship Specialty Start Date End Date Ira Saunders MD [address] [place], [place] PCP - General Internal Medicine 05/08/23 documented as of this encounter
[2025-07-07 14:30] LABS: Troponin-I High Sensitivity < 2.7 ng/L (<3.5-17.0)
--- NOTE | 2025-07-07 14:40 | ED.CHESTPAIN ---
HPI - Chest Pain General Chief Complaint: Chest Pain Stated Complaint: CP, dizzy, weakness Time Seen by Provider: 07/07/25 14:12 Source: patient and EMS Mode of arrival: EMS Limitations: no limitations History of Present Illness ED Provider: NEELAM QUINTANILLA PA-C HPI narrative: 29 yo F with PMH significant for IDDM presents to the ED today via EMS from work following a near-syncopal episode occurring this morning. She reports feeling dizzy, experiencing tunnel vision and weakness in the extremities while at work today. Endorses associated diaphoresis and mild nausea during this. Denies syncope. Patient has been having palpitations and chest pain every afternoon for approximately 2 mo however began feeling faint more recently. Endorses that these episodes make her feel anxious like she is losing control due to the reported tachycardia. She states the highest her heart rate has been is 88 bpm. 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 She believes this was through her PCP however cannot recall exactly. She states they called her to inform her that the monitoring was normal, but wanted her to follow up with cardiology. She reports they didn't have many appointments, so she has not seen cardio. Patient is diabetic and has a CGM and pump. She reports BS of approx 150 during her near-syncopal episode today. She does consume caffeine. Admits she could drink more water. She denies prior h/o panic attacks. She has baseline SOB. Reports was diagnosed with JOSE but does not use her CPAP due to discomfort. Related Data Previous Rx's ?Medication ?Instructions ?Recorded psyllium husk 3.4 gram/5.4 gram 1 tsp PO BID #660 grams 05/27/24 oral powder (Metamucil) Allergies Allergy/AdvReac Type Severity Reaction Status Date / Time No Known Allergies Allergy Verified 07/07/25 12:36 Review of Systems Review of Systems: Yes all other systems are reviewed and are negative [facility] Past Medical History Attestation statement: The following information was validated with the patient. Source: old records reviewed and nursing notes reviewed Medical History Type 1 diabetes Physical Exam Vital Signs: Vital Signs: Last Vital Signs Temp 97.9 F 07/07/25 19:48 Pulse 87 07/07/25 19:48 Resp 16 07/07/25 19:48 BP 118/67 07/07/25 19:48 Pulse Ox 98 07/07/25 19:48 O2 Del Method Room Air 07/07/25 19:48 BMI result Body Mass Index 41.3 Vital signs stable. Not tachycardic or hypoxic. General: anxious appearing, hyperfixating on her watch Skin: Warm, dry, intact. No rashes or lesions. Head: Normocephalic, atraumatic. EENT: Hearing is intact b/l. Conjunctiva clear. Sclera is anicteric. PERRLA. EOM intact. Moist mucous membranes.? Neck: Supple without LAD Cardiac: Chest wall symmetric. RRR Lungs: Normal respiratory effort without accessory muscle use. CTA bilaterally Abdomen: Soft, non-tender, non-distended. No rebound tenderness or guarding. Positive BS x4. Back: No midline spinous or paraspinal tenderness. No step off deformity. Ext: Upper and lower extremities atraumatic, without tenderness, deformity, swelling or erythema Neuro: AOx3. Normal speech. NIH 0. cerebellum intact. Strength 5/5 intact throughout. No saddle anesthesia. Sensation intact to light touch. NV intact distally. Ambulating with steady gait Course Course Course Narrative: CBC without leukocytosis. H and H stable. Chemistry without acute electrolyte abnormality requiring intervention. No TYSON. Random glucose 171, no anion gap. Troponin undetectable. TSH WNL. EKG showing normal sinus rhythm without acute ischemic changes or ST elevations. > on re-evaluation of patient at bedside, mid conversation patient became overwhelmed with the feeling that she was going to faint while lying in the bed. CGM reported glucose of 202. States I do not feel well however unable to describe the sensation to me. I decided that she may benefit from a CT head as she has not had this in the past. She has no neuro deficits and cerebellum is intact however due to persistent dizzy spells, CT has been ordered. During CT scan, patient had a full-blown panic attack - requesting something for anxiety, HR 101 bpm however visibly anxious. ativan ordered. Will add on ddimer as well. 1800 -- patient is stable at this time. CT head without acute abnormality. d dimer pending. sign out given to calin huerta pending dimer and disposition, likely to be discharged home. Medications Administered Discontinued Medications Generic Name Dose Route Start Last Admin Trade Name Freq PRN Reason Stop Dose Admin Sodium Chloride 1,000 mls @ 999 mls/hr 07/07/25 17:00 07/07/25 18:40 Ns IV 07/07/25 18:00 Infused .Q1H1M SHAVONNE Infusion Lorazepam 1 mg 07/07/25 17:14 07/07/25 17:18 Lorazepam 1 Mg Tablet PO 07/07/25 17:15 1 mg ONCE ONE Administration Meclizine HCl 25 mg 07/07/25 17:02 07/07/25 17:18 Meclizine Hcl 25 Mg Tablet PO 07/07/25 17:03 25 mg ONCE ONE Administration Medical Decision Making Medical Decision Making [facility] Narrative: 29 yo F with PMH significant for IDDM presents to the ED today via EMS from work following a near-syncopal episode occurring this morning. Differential diagnosis includes anemia, electrolyte abnormality, dehydration, orthostatic hypotension, POTS, arrhythmia, thyroid abnormality. Lower suspicion for ACS, pericardial effusion, bronchitis, pneumonia. Unlikely PE (PERC 0). Plan for labs, ekg, re-evaluation. Differential Diagnosis Differential Diagnoses: The differential diagnosis associated with the presentation includes As above Admission/Observation Not indicated Lab Data [facility] Lab Attestation statement: I reviewed the patient's lab results. As above 07/07/25 13:57 07/07/25 13:57 Labs: Lab Results 07/07/25 07/07/25 Range/Units 13:57 18:12 WBC 7.4 (4.8-10.8) X10*3/uL RBC 3.93 L (4.20-5.50) X10*6/uL Hgb 12.0 (12.0-16.0) g/dl Hct 34.9 L (37.0-47.0) % MCV 88.8 (80.0-98.0) fL MCH 30.5 (27.0-33.0) pg MCHC 34.4 (31.0-35.0) g/dl RDW 12.5 (11.0-16.0) % Plt Count 257 (160-400) X10*3/uL MPV 9.8 (9.4-12.3) fL Immature Gran % (Auto) 0.3 (0.0-0.4) % Neut % (Auto) 78.9 H (45-73) % Lymph % (Auto) 9.2 L (20-40) % [place] % (Auto) 10.4 (2-11) % Eos % (Auto) 0.9 (0-4) % Baso % (Auto) 0.3 (0-2) % Lymph # (Auto) 0.7 L (1.2-4.9) X10*3/uL [place] # (Auto) 0.8 (0.1-1.2) X10*3/uL Eos # (Auto) 0.1 (0.0-0.4) X10*3/uL Baso # (Auto) 0.0 (0.0-0.2) X10*3/uL Abs Immat Gran (auto) 0.02 (0.00-0.03) X10*3/uL Absolute Neuts (auto) 5.9 (2.0-8.3) x10*3/uL Absolute Nucleated RBC 0.000 (0.0-0.012) X10*3/uL Nucleated RBC % (auto) 0.0 (0.0-0.2) /100WBC D-Dimer High Sensitivty < 150 NG/ML Sodium 139 (135-145) mmol/L Potassium 3.8 (3.3-5.1) mmol/L Chloride 107 (96-108) mmol/L Carbon Dioxide 28 (22-29) mmol/L Anion Gap 8 L (12-20) BUN 9 (9-16) mg/dL Creatinine 0.64 (0.5-1.4) mg/dL Estim Creat Clear Calc 153.7 Estimated GFR > 60 Random Glucose 171 H (60-115) mg/dL Calcium 8.6 (8.4-10.2) mg/dL Troponin I High Sens < 2.7 (<3.5-17.0) ng/L TSH 0.79 (0.32-4.0) uIU/mL Beta HCG, Quant < 2 mIU/mL Independent Interpretation I performed an independent interpretation of an: EKG and CT Scan Interpretation: EKG showing normal sinus rhythm, rate of 77 beats per minute, QT 398, QTC 450, no acute ischemic changes or ST elevations ct head/brain without bleed or mass Radiology Impression Discussion of test interpretation with radiology: I have reviewed the radiologist's reading. Radiologist Impression: Procedure(s): CT head/brain wo IV con Accession Number(s): [id number] cc: Ira Saunders MD; Neelam Quintanilla~ Report Number: [id number]: Total DLP = 0.00 mGy-cm Reason for Exam: dizziness CLINICAL HISTORY: dizziness CT head without contrast Comparison: None available Findings: No acute hemorrhage. No extra-axial fluid collection. No hydrocephalus, mass-effect or herniation. Bernardo-white differentiation is maintained. White matter is within normal limits for age. No acute orbital pathology. No acute soft tissue abnormality. Multifocal scalp scarring. No fracture. The visualized paranasal sinuses are predominantly clear. The mastoid air cells are clear. Impression: No acute findings. This document has been electronically signed by: Tracy Maravilla MD on 07/07/2025 18:12:02 Independent Historian Clinical information obtained from an independent historian. History obtained from or confirmed by: EMS External Record Review External record reviewed: Inpatient record Prescription Management I considered prescription management with: Other (ativan) Chronic Conditions Patient?s care impacted by: Diabetes Social Determinants Patient?s care significantly limited by Social Determinants of Health including: Other Social Determinant of Health Critical Care Time Critical Care Time Critical Care Time: No Discharge Plan Discharge Clinical Impression: Chest pain, Heart palpitations Patient Disposition: Home, Self-Care Instructions: Chest Pain (ED) Additional Instructions: Your workup in the ER today was reassuring. This includes your blood work, EKG, orthostatic vital signs, I recommend that you follow up with Cardiology for further evaluation of your chest pain and palpitations Prescriptions: No Action Metamucil 3.4 gram/5.4 gram powder 1 tsp PO BID Qty: 660 0RF Rx Instructions: mix into at least 4 oz water or juice before administering Referrals: [facility] [Provider Group] Referral Note: Chest pain, palpitations Stand Alone Forms: Work/School Release Interventions: ED Discharge Assessment Last Done: 07/07/25 19:48 Discharge Date/Time: 07/07/25 20:00 Print Language: [place]
[2025-07-07 19:25] LABS: D Dimer High Sensitivity < 150 NG/ML
== END 2025-07-07 20:00 | disposition home or self-care (01) ==
PROVIDERS: Physician Assistant Medical; Emergency Provider Emergency Medicine; PCP Internal Medicine
DX: R07.89 Other chest pain (principal); R42 Dizziness and giddiness; R53.1 Weakness; R00.0 Tachycardia, unspecified; R00.2 Palpitations; R11.0 Nausea; F41.9 Anxiety disorder, unspecified; Z79.899 Other long term (current) drug therapy
CPT/HCPCS: 36415; 70450; 80048; 84443; 84484; 84702; 85025; 85379; 93005; 96360; 99284; 99285

== ENCOUNTER → 2025-07-07 13:32 | Outpatient (BNV) | payer OTHER, SELFPAY | PROVIDERS: Emergency Provider Emergency Medicine; PCP Internal Medicine; Visit Provider Internal Medicine | DX: R94.31 Abnormal electrocardiogram [ECG] [EKG] (principal); R07.9 Chest pain, unspecified | CPT/HCPCS: 93010 ==

== ENCOUNTER → 2025-07-07 16:49 | Outpatient (BNV) | payer OTHER, SELFPAY | PROVIDERS: Emergency Provider Emergency Medicine; PCP Internal Medicine; Visit Provider Radiology Diagnostic Radiology | DX: R42 Dizziness and giddiness (principal) | CPT/HCPCS: 70450 ==

== ENCOUNTER 2025-07-11 11:24 | Outpatient (AMB) | payer OTHER, SELFPAY ==
--- NOTE | 2025-07-11 11:25 | A.OFFVIS_ITS ---
Vital Signs 07/11/25 11:26 Height 5 ft 4 in Weight 239 lb BMI 41.0 BP 110/60 Blood Pressure Location Lt brachial Position Sitting Pulse 75 Pulse Source Pulse Oximeter Intake Visit Reasons: [id number], dizzy, weakness Allergies No Known Allergies Allergy (Verified 07/07/25 12:36) Medication List - Last Reviewed 07/11/25 by Desire Murray cholecalciferol (vitamin D3) 25 mcg PO DAILY insulin lispro subcut lisinopril 5 mg PO DAILY subcutaneous insulin pump As directed HPI Comments Details: The patient is a 29-year-old female presenting with symptoms of dyspnea and dizziness. She reports difficulty breathing, described as a sensation of blockage when inhaling, worsened by exertion such as climbing stairs. 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 The patient has a history of type 1 diabetes mellitus, diagnosed in 2017, managed with an insulin pump and continuous glucose monitoring, with stable blood glucose levels reported. A sleep study diagnosed sleep apnea, for which oxygen therapy was prescribed but not used due to discomfort. [facility] Medical History (Updated 07/11/25 @ 12:15 by Rodger Torres MD) JOSE (obstructive sleep apnea) Type 1 diabetes Family History (Updated 07/11/25 @ 11:30 by Desire Murray) Mother Acute onset of severe vertigo Father Heart problem Maternal Uncle Heart problem Heart attack Social History (Updated 07/11/25 @ 11:31 by Desire Murray) Alcohol intake: never Patient Tobacco Use Status: Never used Tobacco Review of Systems Const Denies weakness Eyes Reports blurry vision ENT Reports dizziness Card Reports chest pain, Reports chest pain with activity, Reports syncope, Denies rapid heart rate, Denies pedal edema, Denies edema, Denies leg edema, Denies lightheadedness, Reports palpitations, Reports dyspnea, Denies dyspnea on exertion and Denies orthopnea Resp Denies cough, Reports dyspnea and Denies dyspnea on exertion GI Denies hematochezia and Denies change in stool character Musc Denies abnormal gait, Denies muscle cramps, Denies muscle weakness, Denies numbness, Denies radiating pain into limb and Denies tingling Neuro Denies abnormal gait, Reports dizziness, Reports syncope, Denies numbness, Denies tingling and Denies weakness Endo Reports palpitations Physical Exam Vital Signs: Last Vital Signs Pulse 75 07/11/25 11:26 BP 110/60 07/11/25 11:26 BMI result Body Mass Index 41.0 Const General: comfortable and no acute distress Orientation/consciousness: patient oriented x3 HEENT Other: Unremarkable Head: Yes normal to inspection Neck Neck: Yes normal visual inspection Chest Chest palpation & inspection: normal inspection of the chest Resp Auscultation: clear to auscultation bilaterally Cardio Palpation: normal PMI Heart sounds: S1 normal heart sound present, S2 normal heart sound present, no gallops, Murmur heart sound present systolic II/ and at the right sternal border and no rubs GI Palpation (GI): Soft to palpation Back/Spine/Pelvis Other: unremarkable Skin General skin exam: no rashes or lesions noted Neuro General: patient oriented x3 Extrem General: Yes normal to inspection Psych Mental Status: mental status grossly normal Assessment & Plan Assessment & Plan (1) Shortness of breath: Code(s): R06.02 - Shortness of breath Category: Medical (2) Heart palpitations: Code(s): R00.2 - Palpitations Category: Medical (3) Dizziness: Code(s): R42 - Dizziness and giddiness Category: Medical Plan We will pursue comprehensive cardiac workup including an echocardiogram, stress test and 7 day Holter monitor. Per patient, she has done 1 day Holter at [facility] and we will get that report. We will also get the report of a sleep study, again apparently performed at [facility]. Per patient, she was recommended to go on oxygen for sleep apnea, but she is not using that. Also, not clear if there is any autonomic dysfunction related to diabetes. We will follow up after the testing. Discussion Notes I discussed with the patient the plan to conduct a heart ultrasound, stress test, and extended Holter monitoring to evaluate her symptoms of dyspnea and dizziness. We also reviewed her sleep apnea diagnosis and the importance of using prescribed oxygen therapy, despite her discomfort with the device. Patient was informed and verbally consented to the use of an ambient scribe for clinic note documentation during this visit. Orders: Orders CA echo transthoracic complete Today R06.02 - Shortness of breath CA stress test Today R06.02 - Shortness of breath ECG 7 day holter monitor Today R00.2 - Palpitations, R06.02 - Shortness of breath Medications: Discontinued psyllium husk (Metamucil) mix into at least 4 oz water or juice before administering Discontinued Reason: Patient no longer taking 1 tsp PO BID 660 grams 0RF Coding Level of Care Code New Pt Level 4 (07464) Complex EM visit Add On G2211 Diagnoses Shortness of breath R06.02 Heart palpitations R00.2 Dizziness R42
[2025-07-11 11:26] VITALS: BP 110/60; PULSE 75; BMI 41.0
--- OUTSIDE RECORDS SUMMARY | 2025-07-11 14:01 | XMS_ITS | Encounter Summary ---
Author Organization [facility] Address [address] [place] [address] Care Team Providers Care Seat Joiner Chainstitch Name Role Phone Ira Saunders MD Primary Care Provider [phone] Encounter Details Date Type Department Care Team (Late st Contact Info) Description 12/31/2024 Lab Requisition [facility] - Main Lab [address] [facility] [place] [address] Dwain Kumari PA [address] [place] [phone] Gross hematuria Social History Tobacco Use Types [...] AM EDT) Final Diagnosis A. Urine, Voided, ([id number]): Negative for high grade urothelial carcinoma. Results of UroVysion fluorescence in situ hybridization (FISH) testing: CEP3: Normal CEP7: Normal CEP17: Normal LSI 9p21: Normal Interpretation: Normal profile Controls stained appropriately. Note: The results are intended as a screening device and should be interpreted in association with other clinical and pathological findings. 01/06/2025 4:18 PM EDT [facility] Clinical Information Gross hematuria R31.0 Urine Cytology/FISH (now) 01/06/2025 4:18 PM EDT [facility] Gross Description A. Urine, Voided, ([id number]): Received one ThinPrep slide for cytology and one ThinPrep slide for UroVysion FISH 01/06/2025 4:18 PM EDT [facility] Disclaimer Unless otherwise specified, all tissue is 10% NB formalin fixed and paraffin embedded. Technical pathology services provided by [facility] at [address] [facility] [address], [place] [address] (CLIA #[id number]/Nneka Gonzalez MD, Broaching Machine Set Up Operator) 01/06/2025 4:18 PM EDT [facility] Tissue Urine specimen from urethra / Unknown 12/28/2024 12/31/2024 4:21 PM EDT us Dwain TAYLOR LAB PATHOLOGY ORDERABLES Final Result [facility] [address] [place] [address], documented in this encounter Visit Diagnoses Diagnosis Gross hematuria documented in this encounter Care Teams Seat Joiner Chainstitch Relationship Specialty Start Date End Date Ira Saunders MD [address] [place] [address] PCP - General Internal Medicine 05/11/25 documented as of this encounter
--- OUTSIDE RECORDS SUMMARY | 2025-07-11 14:01 | XMS_ITS | Encounter Summary ---
Author Organization [facility] Address [address] [address] Phone Care Team Providers Care Warehouse Analyst Name Role Phone Ira Saunders MD Primary Care Provider [phone] Encounter Details Date Type Department Care Team (Late Contact Info) Description 10/20/2024 Office Communication [facility] [address] [place] [address] Yvrose Devine ARNP [address] [place] [address] Social History Tobacco Use Types Packs/Day [...] Office Visit [facility] [address] [address] Rafat Albrecht MD [address] [address] documented as of this encounter Visit Diagnoses Not on filedocumented in this encounter Care Teams Warehouse Analyst Relationship Specialty Start Date End Date Ira Saunders MD [address] [place] [address] PCP - General Internal Medicine 05/08/23 documented as of this encounter
--- OUTSIDE RECORDS SUMMARY | 2025-07-11 14:01 | XMS_ITS | Clinical Summary ---
Author Organization [address] [facility] Address [address] [place] [address] Phone Care Team Providers Care Community Health Nurse Staff Name Role Phone Ira Saunders MD Primary Care Provider [phone] Encounters Date Type Department Care Team Description 05/11/2025 Telephone [facility] [address] [place] [address] Ira Saunders MD from Last [...] patient's age to complete this topic Insurance [facility] Care Teams Community Health Nurse Staff Relationship Specialty Start Date End Date Ira Saunders MD [address] [place] [phone] PCP - General Internal Medicine 05/11/25
--- OUTSIDE RECORDS SUMMARY | 2025-07-11 14:02 | XMS_ITS | Clinical Summary ---
Author Organization [facility] Address [address] [place] [address] Phone Care Team Providers Care Gerontology Aide Name Role Phone Ira Saunders MD Primary Care Provider [phone] Allergies No known active allergies Medications glucose [...] [facility] [address] [phone] Marva Day 05/19/2025 Results Follow-Up [facility] [address] [address] Rafat Albrecht MD 05/05/2025 4:30 PM EDT Office Visit [facility] [address] [address] Rafat Albrecht MD Proteinuria, not [...] [facility] [address] [address] Rafat Albrecht MD [address] [address] Health Maintenance Due Date Last [...] Laterality Modality Body Ultrasound Rafat Albrecht MD [facility] US PROCEDURES Final Result * (ABNORMAL) Basic metabolic panel (05/11/2025 1:09 PM EDT) Glucose 164(H) 70 - 99 mg/dL [facility] BUN 11 6 - 20 mg/dL [facility] Creatinine 0.62 0.57 - 1.00 mg/dL [facility] eGFR CKD-EPI CR 2020 122 >59 mL/min/1.7 3 [facility] BUN/Creatinine Ratio 18 9 - 23 [facility] Sodium 135 134 - 144 mmol/L [facility] Potassium 4.3 3.5 - 5.2 mmol/L [facility] Chloride 102 96 - 106 mmol/L [facility] Bicarbonate (CO2) 20 20 - 29 mmol/L [facility] Calcium 8.6(L) 8.7 - 10.2 mg/dL [facility] Blood Venous blood / Unknown 05/11/2025 1:09 PM EDT 05/11/2025 Rafat Albrecht MD LAB BLOOD ORDERABLES Final Resul t [facility] [address] [place] [address] * Microscopic Examination (05/11/2025 1:02 PM EDT) WBC, Urine None seen 0 - 5 /hpf [facility] RBC, Urine None seen 0 - 2 /hpf [facility] Squamous Epithelial, Urine None seen 0 - 10 /hpf [facility] Casts None seen None seen /lpf [facility] Bacteria, Urine None seen None seen/Few [facility] 05/11/2025 1:02 PM EDT 05/11/2025 Yvrose LEWIS LAB MICROBIOLOGY - GENERAL ORDERABLES Final Result Performing Organization Address City/[facility]/ZIP Co de Phone Number [facility] [address] [place] [phone] * (ABNORMAL) Urine Protein / creatinine ratio (05/11/2025 1:02 PM EDT) Creatinine, Ur 14.0 Not Estab. mg/dL [facility] Protein, Ur <4.0 Not Estab. mg/dL [facility] Comment:Verified by repeat analysis Urine Protein/Creatinin e Ratio Comment(A ) 0 - 200 mg/g creat [facility] Comment: This result is below the assay's limit of quantitation indicating a dilute specimen, potentially due to diurnal variation. Consider recollection at a time likely to provide a more concentrated urine. Urine specimen (specimen) Urine specimen obtained by clean catch procedure / Unknown 05/11/2025 1:02 PM EDT 05/11/2025 Yvrose [facility] LAB URINE ORDERABLES Final Result Performing Organization Address City/[facility]/ZIP Co de Phone Number [facility] [address] [place] [address] * Urine Albumin / Creatinine Ratio (05/11/2025 1:02 PM EDT) Pathologist [facility] Albumin, Urine <3.0 Not Estab. ug/mL [facility] Albumin/Creatin ine Ratio <21 0 - 29 mg/g creat [facility] Comment: Normal: 0 - 29 Moderately increased: 30 - 300 Severely increased: >300 Urine specimen (specimen) Urine specimen obtained by clean catch procedure / Unknown 05/11/2025 1:02 PM EDT 05/11/2025 [facility] LAB URINE ORDERABLES Final Result Performing Organization Address [facility] de Phone Number [facility] [place] [address] [place] [address] * (ABNORMAL) Urinalysis with microscopic (05/11/2025 1:02 PM EDT) Pathologist [facility] Specific [place], Urine 1.005 1.005 - 1.030 [facility] [phone] pH Urine 6.5 5.0 - 7.5 [facility] [phone] Color, Urine Yellow Yellow [facility] [phone] Appearance [facility]rine [facility] [place] [phone] WBC Esterase Urine Negative Negative [facility] Protein, Ur Negative Negative/Tra ce [facility] [phone] Glucose, Ur Negative Negative [facility] [phone] Ketones, Urine Negative Negative [facility] [place] [phone] Blood Urine Trace(A) Negative [facility] Bilirubin Urine Negative Negative [facility] [place] Urobilinogen Urine 0.2 0.2 - 1.0 mg/dL [facility] Nitrite, Urine Negative Negative [facility] [place] Microscopic Examination See below: [facility] Comment:Microscopic was javier cated and was performed. Urine specimen (specimen) Urine specimen obtained by clean catch procedure / Unknown 05/11/2025 1:02 PM EDT 05/11/2025 us Yvrose Devine [facility] URINE ORDERABLES Final Result [facility] [address] [place] [address] * (ABNORMAL) Renal function panel (05/11/2025 1:02 PM EDT) Glucose 165(H) 70 - 99 mg/dL [facility] BUN 12 6 - 20 mg/dL [facility] Creatinine 0.64 0.57 - 1.00 mg/dL [facility] eGFR CKD-EPI CR 2020 121 >59 mL/min/1.7 3 [facility] BUN/Creatinine Ratio 19 9 - 23 [facility] Sodium 135 134 - 144 mmol/L [facility] Potassium 4.4 3.5 - 5.2 mmol/L [facility] Chloride 101 96 - 106 mmol/L [facility] Bicarbonate (CO2) 21 20 - 29 mmol/L [facility] Calcium 8.8 8.7 - 10.2 mg/dL [facility] Phosphorus 3.3 3.0 - 4.3 mg/dL [facility] Albumin 4.2 3.9 - 4.9 g/dL [facility] Blood specimen (specimen) Venous blood / Unknown 05/11/2025 1:02 PM EDT 05/11/2025 Yvrose LEWIS LAB BLOOD ORDERABLES Final Result [facility] [address] [place] [address] * (ABNORMAL) Hemoglobin A1c (03/04/2024 2:51 PM EDT) Hemoglobin A1C 7.5(H) 4.8 - 5.6 % See order comments Comment: Prediabetes: 5.7 - 6.4 Diabetes: >6.4 Glycemic control for adults with diabetes: <7.0 Blood specimen (specimen) Venous blood / Unknown 03/04/2024 2:51 PM EDT 03/04/2024 Narrative [facility] - 03/05/2024 10:07 AM EDT Performed at: - [address] [id number] Manager Marketing: Noelle Ferguson MD, Phone: [phone] Lucila Saab MD LAB BLOOD ORDERABLES Final Result Performing Organization Address City/[facility]/ZIP Co de Phone Number [facility] See order comments [place] [address] from Last 3 Months or Most Recently Relevant to Health Maintenance Insurance [facility] Medicaid [facility] Medicaid Care Teams Gerontology Aide Relationship Specialty Start Date End Date Ira Saunders MD [address] [place] [address] PCP - General Internal Medicine 05/08/23
--- OUTSIDE RECORDS SUMMARY | 2025-07-11 14:02 | XMS_ITS | Encounter Summary ---
Author Organization [facility] Address [address] [address] Phone Care Team Providers Care Unit Manager [employer]ience [employer] Name Role Phone Ira Saunders MD Primary Care Provider [phone] Encounter Details Date Type Department Care Team (Late Contact Info) Description 07/04/2025 Office Communication [facility] [address] [address] Marva Day [address] [address] Social History Tobacco Use Types [...] Office Visit [facility] [address] [address] Rafat Albrecht MD [address] [address] documented as of this encounter Visit Diagnoses Not on filedocumented in this encounter Care Teams Unit Manager [employer] Relationship Specialty Start Date End Date Ira Saunders MD [address] [place], [place] PCP - General Internal Medicine 05/08/23 documented as of this encounter
== END 2025-07-11 11:50 | disposition home or self-care (01) ==
LOC: HO.HCS 11:24
PROVIDERS: PCP Internal Medicine; Visit Provider Internal Medicine
DX: R06.02 Shortness of breath (principal); R00.2 Palpitations; R42 Dizziness and giddiness
CPT/HCPCS: 99214; G2211

== ENCOUNTER → 2025-07-11 11:24 | Outpatient (BNVA) | payer OTHER, SELFPAY | PROVIDERS: PCP Internal Medicine; Visit Provider Internal Medicine | DX: R06.02 Shortness of breath (principal); R00.2 Palpitations; R42 Dizziness and giddiness | CPT/HCPCS: 99212 ==

== ENCOUNTER → 2025-08-19 10:08 | Outpatient (REF) | payer OTHER, SELFPAY ==
--- NOTE | 2025-08-19 10:35 | CA_ITS ---
Acquisition Time: 2025-08-19 10:13:23 Total Exercise Time: 00:03:19 Test Indications: sob Medications: see h&p Protocol: WILSON Max HR: 153 BPM 80% of Pred: 189 BPM Max BP: 140/60 mmHG Max Work Load: 4.9 METS Exercise stress test with exercise 3 mins 19 secs of Wilson Protocol, achieving 79% MPHR, requesting to stop due to various reports of anxiety, leg pain, dizziness, and 6/10 chest discomfort. Without any arrythmias. With normotensive response to exercise. No EKG changes at the achieved workload. In recovery, pt feeling back to baseline. Test reviewed with Dr. Torres. Referred By: Rodger Torres Electronically Signed By: Jeevan Rey
--- OUTSIDE RECORDS SUMMARY | 2025-08-19 12:22 | XMS_ITS | Clinical Summary ---
Author Organization [address] Address [address] [place] [address] Phone Care Team Providers Care Insect Control Inspector Name Role Phone Ira Saunders MD Primary Care Provider [phone] Social History Tobacco Use Types Packs/Day Years [...] Contro l Test (HGBA1C) 05/11/2025 COVID-19 Vaccine ( - 2024-2 6 season) 2025 Influenza Vaccine (#1) 2025 RSV [...] patient's age to complete this topic Insurance [facility] Care Teams Insect Control Inspector Relationship Specialty Start Date End Date Ira Saunders MD [address] [place] [phone] PCP - General Internal Medicine 05/11/25
--- OUTSIDE RECORDS SUMMARY | 2025-08-19 12:23 | XMS_ITS | Encounter Summary ---
Author Organization [facility] Address [address] [place] [address] Care Team Providers Care Shop And Alteration Tailor Name Role Phone Ira Saunders MD Primary Care Provider [phone] Encounter Details Date Type Department Care Team (Late st Contact Info) Description 12/31/2024 Lab Requisition [facility] - Main Lab [address] [facility] [place] [address] Dwain Kumari PA [address] [place] [phone] Gross hematuria Social History Tobacco Use Types [...] AM EDT) Final Diagnosis A. Urine, Voided, ([id number]): Negative for high grade urothelial carcinoma. Results of UroVysion fluorescence in situ hybridization (FISH) testing: CEP3: Normal CEP7: Normal CEP17: Normal LSI 9p21: Normal Interpretation: Normal profile Controls stained appropriately. Note: The results are intended as a screening device and should be interpreted in association with other clinical and pathological findings. 01/06/2025 4:18 PM EDT [facility] Clinical Information Gross hematuria R31.0 Urine Cytology/FISH (now) 01/06/2025 4:18 PM EDT [facility] Gross Description A. Urine, Voided, ([id number]): Received one ThinPrep slide for cytology and one ThinPrep slide for UroVysion FISH 01/06/2025 4:18 PM EDT [facility] Disclaimer Unless otherwise specified, all tissue is 10% NB formalin fixed and paraffin embedded. Technical pathology services provided by [facility] at [address] [facility] [address], [place] [address] (CLIA #[id number]/Nneka Gonzalez MD, Painting Supervisor) 01/06/2025 4:18 PM EDT [facility] Tissue Urine specimen from urethra / Unknown 12/28/2024 12/31/2024 4:21 PM EDT us Dwain TAYLOR LAB PATHOLOGY ORDERABLES Final Result [facility] [address] [place] [address], documented in this encounter Visit Diagnoses Diagnosis Gross hematuria documented in this encounter Care Teams Shop And Alteration Tailor Relationship Specialty Start Date End Date Ira Saunders MD [address] [place] [address] PCP - General Internal Medicine 05/11/25 documented as of this encounter
--- OUTSIDE RECORDS SUMMARY | 2025-08-19 12:23 | XMS_ITS | Clinical Summary ---
Author Organization [facility] Address [address] [place] [phone] Phone Care Team Providers Care Tube Drawer Name Role Phone Ira Saunders MD Primary Care Provider [phone] Allergies No known active allergies Medications glucose [...] (one) time each day 90 tablet 3 07/13/2025 10/11/19 26 Active tamsulosin (FLOMAX) 0.4 MG 24 hr capsule Take 1 capsule (0.4 mg total) by mouth 1 (one) time each day 90 capsule 3 07/13/2025 Active Active Problems Problem Noted Date Diagnosed [...] Encounters Date Type Department Care Team Description 07/13/2025 1:30 PM EDT Office Visit 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 [address] [address] Rafat Albrecht MD from Last 3 Months Immunizations Immunization Administration [...] Sign Reading Time Taken Comments Blood Pressure 120/70 07/13/2025 2:11 PM EDT Pulse 104 05/05/2025 4:40 PM EDT Temperature - - Respiratory Rate - - Oxygen Saturation 99% 07/29/2023 1:08 PM EDT Inhaled Oxygen Concentration - - Weight 91.6 kg (202 lb) 07/13/2025 2:11 PM EDT Height - - Body Mass Index - - Plan of Treatment Upcoming Encounters Date Type Department Care Team (Late st Contact Info) Description 01/12/2026 4:30 PM EDT Office Visit [facility] [address] [address] Rafat Albrecht MD [address] [address] Health Maintenance Due Date Last [...] Visual Foot Exam 05/29/2023 Diabetes: Hemoglobin A1C 06/04/2024 024, 07/29/2023, 05/14/2023 Influenza Vaccine (#1) 2025 2, 06/17/2021, 07/21/2020, Additional history exists Procedures Procedure Name Priority Date/Time Associated Diagnosis Comments URINALYSIS WITH MICROSCOPIC Routine 07/25/2025 5:09 PM EDT Proteinuria, not otherwise specified URINE ALBUMIN / CREATININE RATIO Routine 07/25/2025 5:09 PM EDT Proteinuria, not otherwise specified MICROSCOPIC EXAMINATION - DO NOT USE Routine 07/25/2025 5:09 PM EDT US RENAL LIMITED Routine 06/20/2025 11:0 1 AM EDT 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) HEMOGLOBIN A1C Routine 03/04/2024 2:51 PM EDT 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) from Last 3 Months or Most Recently Relevant to Health Maintenance Results * Microscopic Examination (07/25/2025 5:09 PM EDT) WBC, Urine 0-5 0 - 5 /hpf [facility] RBC, Urine None seen 0 - 2 /hpf [facility] Squamous Epithelial, Urine 0-10 0 - 10 /hpf [facility] Casts None seen None seen /lpf [facility] Bacteria, Urine None seen None seen/Few [facility] 07/25/2025 5:09 PM EDT 07/25/2025 us Rafat Albrecht MD LAB MICROBIOLOGY - GENERAL ORDER RICKI Final Result [facility] [address] [place] [address] * urine albumin / creatinine ratio (07/25/2025 5:09 PM EDT) Creatinine, Ur 14.0 Not Estab. mg/dL [facility] Albumin, Urine <3.0 Not Estab. ug/mL [facility] Albumin/Creatin ine Ratio <21 0 - 29 mg/g creat [facility] Comment: Normal: 0 - 29 Moderately increased: 30 - 300 Severely increased: >300 Urine Urine specimen obtained by clean catch procedure / Unknown 07/25/2025 5:09 PM EDT 07/25/2025 us Rafat Albrecht MD LAB URINE ORDERABLES Final Resul t [facility] [address] [place] [address] * (ABNORMAL) Urinalysis with microscopic exam OUTSIDE OFFICE (07/25/2025 5:09 PM EDT) Specific [place], Urine <=1.005(A) 1.005 - 1.030 [facility] pH Urine 7.0 5.0 - 7.5 [facility] [phone] Color, Urine Yellow Yellow [facility] Appearance Urine Clear Clear [facility] WBC Esterase Urine Negative Negative [facility] Protein, Ur Negative Negative/Tra ce [facility] Glucose, Ur Negative Negative [facility] Ketones, Urine Negative Negative [facility] [phone] Blood Urine 1+(A) Negative [facility] Bilirubin Urine Negative Negative [facility] Urobilinogen Urine 0.2 0.2 - 1.0 mg/dL [facility] Nitrite, Urine Negative Negative [facility] Microscopic Examination See below: [facility] Comment:Microscopic was javier cated and was performed. Urine Urine specimen obtained by clean catch procedure / Unknown 07/25/2025 5:09 PM EDT 07/25/2025 Rafat Albrecht MD LAB URINE ORDERABLES Final Resul t [facility] [address] [place] [address] * Ultrasound renal limited (06/20/2025 11:01 AM EDT) Anatomical Region Laterality Modality Body Ultrasound Rafat Albrecht MD IMG US PROCEDURES Final Result * (ABNORMAL) Hemoglobin A1c (03/04/2024 2:51 PM EDT) Hemoglobin A1C 7.5(H) 4.8 - 5.6 % See order comments Comment: Prediabetes: 5.7 - 6.4 Diabetes: >6.4 Glycemic control for adults with diabetes: <7.0 Blood specimen (specimen) Venous blood / Unknown 03/04/2024 2:51 PM EDT 03/04/2024 Narrative [facility] - 03/05/2024 10:07 AM EDT Performed at: - [facility] [address] [id number] Underwear Trimmer: Noelle Ferguson MD, Phone: [phone] Lucila Saab MD LAB BLOOD ORDERABLES Final Result [facility] See order comments [place] [address] from Last 3 Months or Most Recently Relevant to Health Maintenance Insurance [employer] Medicaid [employer] Medicaid Care Teams Tube Drawer Relationship Specialty Start Date End Date Ira Saunders MD [address] [place] [address] PCP - General Internal Medicine 05/08/23
== END ==
LOC: HO.CARD 10:08
PROVIDERS: PCP Internal Medicine; Visit Provider Internal Medicine
DX: R06.02 Shortness of breath (principal)
CPT/HCPCS: 93017

== ENCOUNTER → 2025-08-19 10:35 | Outpatient (BNV) | payer OTHER, SELFPAY | PROVIDERS: PCP Internal Medicine | DX: R07.89 Other chest pain (principal); R42 Dizziness and giddiness | CPT/HCPCS: 93016; 93018 ==

== ENCOUNTER → 2025-09-05 13:08 | Outpatient (REF) | payer OTHER, SELFPAY ==
--- NOTE | 2025-09-05 13:11 | CA_ITS ---
Transthoracic Echocardiogram Patient (Last, First, Middle): Kinza Alcazar, Gender: F Date of : 1995 Age: 29 Procedure Date: 09/05/2025 Procedure Type: Transthoracic Echocardiogram Location: OP Height: 162.56 cm Weight: 108.41 kg BSA: 2.11 m2 Heart Rate: bpm BP: 110 / 60 mmHg Construction Supervisor: SPENSER Referring MD: Rodger Torres MD Symptoms: R06.02 - Shortness of breath Study Quality: Adequate ECG Rhythm: Sinus Conclusions: - The left ventricular systolic function is normal. The calculated ejection fraction is 59% by biplane method. - No obvious valvular pathology seen on this study. Findings Left Ventricle Normal left ventricular cavity size. There is normal left ventricular wall thickness. The left ventricular systolic function is normal. The calculated ejection fraction is 59% by biplane method. There is no evidence of regional wall motion abnormalities. Diastolic function is normal for age. Right Ventricle Normal right ventricular cavity size and systolic function. Atria Both atria are normal in size. Aortic Valve There is a normal trileaflet aortic valve. There is no aortic valve stenosis. There is no aortic valve regurgitation. Mitral Valve The mitral valve appears normal. There is no mitral valve regurgitation. There is no mitral valve stenosis. Pulmonic Valve The pulmonic valve is likely normal. Tricuspid Valve There is trace tricuspid valve regurgitation. There is no evidence of pulmonary hypertension. Great Vessels The asc aorta and aortic arch are normal in size. Venous The inferior vena cava is normal in size and collapses greater than 50% with inspiration. Pericardium/Pleural There is no evidence of pericardial effusion. Prior Study Comparison No prior study available for comparison. Recommendations, Care & Conclusions No obvious valvular pathology seen on this study. Measurements 2D Linear Measurements IVSd: 0.77 0.6-0.9/0.6-1.0 cm LVIDd: 5.50 3.9-5.3/4.2-5.9 cm LVIDd Index: 2.61 2.4-3.2/2.2-3.1 cm/m2 LVIDs: 3.78 2.0-3.6 cm LVPWd: 0.70 0.7-1.1 cm LA Diam: 3.80 2.7-3.8/3.0-4.0 cm LAIDs Index: 1.80 1.5-2.3 cm/m2 LV Mass: 179.27 67-162/88-224 g LV Mass Index: 84.96 43-95/49-115 g/m2 LVOT Diam: 2.00 3.0+(-)1.3 cm 2D Systolic Function EF 4C: 57.20 >55% EF 2C: 60.20 >55% EF BiP: 58.80 >55% Mitral Valve MV Pk E: 1.19 MV PK A: 0.47 MV Decel Time: 209.00 E/A: 2.60 E'Lateral: 16.20 E'Medial: 10.00 E/E' Med: 11.90 E/E' Lat: 7.30 PHT: 61.00 MVA PHT: 3.61 Decel Attala: 5.68 Aortic Valve AoV Pk Costa: 1.63 AoV Mn Costa: 1.21 AoV VTI: 0.37 AoV Pk Grad: 11.00 Aov Mn Grad: 6.00 FARA Cont.VTI: 1.78 LVOT LVOT Pk Costa: 0.98 LVOT Mn Costa: 0.71 LVOT VTI: 0.21 LVOT Pk Grad: 4.00 LVOT Mn Grad: 2.00 LVOT Diam: 2.00 LVOT Area: 3.14 Diastolic Function MV Pk E: 1.19 MV Pk A: 0.47 E/A: 2.60 E'Medial: 10.00 E/E' Med: 11.90 E' Laterial: 16.20 E/E' Lat: 7.30 Right Ventricle TAPSE (mm): 27.30 TVS' Costa: 12.80 Tricuspid Valve TR Pk Costa: 2.07 TR Pk Grad: 17.00 RA Press: 3.00 RVSP: 20.00 Great Vessels Aorta Sinus of Valsalva: 2.96 2.0-3.[address] Ridge: 2.34 1.7-3.4 cm Ao Asc: 3.00 2.1-3.4 cm Ao Arch: 2.60 Pulmonary Veins Pulm Vein S/D 1.70 Updated in Other Vendor System with Status of Final Rodger Torres MD electronically signed on 09/06/2025 1:46:09 PM with status of Final
--- OUTSIDE RECORDS SUMMARY | 2025-09-05 16:50 | XMS_ITS | Clinical Summary ---
Author Organization [address] Address [address] [place] [address] Phone Care Team Providers Care Ged Instructor Name Role Phone Ira Saunders MD Primary Care Provider [phone] Social History Tobacco Use Types Packs/Day Years [...] (1 - 3-dose SCD M series) 2020 HIV Screening 09/02/2022 Hepatitis C Screening 09/02/2022 Social Influencers of Health Screening 09/02/2022 Depression Screening 10/06/2024 COVID-19 Vaccine ( - 2024-2 6 season) [...] to complete this topic Insurance [facility] Care Teams Ged Instructor Relationship Specialty Start Date End Date Ira Saunders MD [address] [place] [phone] PCP - General Internal Medicine 05/11/25
--- OUTSIDE RECORDS SUMMARY | 2025-09-05 16:50 | XMS_ITS | Encounter Summary ---
Author Organization [facility] Address [address] [place] [address] Care Team Providers Care Adobe Developer Name Role Phone Ira Saunders MD Primary Care Provider [phone] Encounter Details Date Type Department Care Team (Late st Contact Info) Description 12/31/2024 Lab Requisition [facility] - Main Lab [address] [facility] [place] [address] Dwain Kumari PA [address] [place] [phone] Gross hematuria Social History Tobacco Use Types [...] AM EDT) Final Diagnosis A. Urine, Voided, ([id number]): Negative for high grade urothelial carcinoma. Results of UroVysion fluorescence in situ hybridization (FISH) testing: CEP3: Normal CEP7: Normal CEP17: Normal LSI 9p21: Normal Interpretation: Normal profile Controls stained appropriately. Note: The results are intended as a screening device and should be interpreted in association with other clinical and pathological findings. 01/06/2025 4:18 PM EDT [facility] ([facility]) [facility] at 1618 EDT Clinical Information Gross hematuria R31.0 Urine Cytology/FISH (now) 01/06/2025 4:18 PM EDT [facility] Gross Description A. Urine, Voided, ([id number]): Received one ThinPrep slide for cytology and one ThinPrep slide for UroVysion FISH 01/06/2025 4:18 PM EDT [facility] Disclaimer Unless otherwise specified, all tissue is 10% NB formalin fixed and paraffin embedded. Technical pathology services provided by [facility] at [address] [facility] [address], [place] [address] (CLIA #[id number]/Nneka Gonzalez MD, Renewable Energy Trader) 01/06/2025 4:18 PM EDT [facility] Tissue Urine specimen from urethra / Unknown 12/28/2024 12/31/2024 4:21 PM EDT us Dwain TAYLOR LAB PATHOLOGY ORDERABLES Final Result [facility] [address] [place] [address], documented in this encounter Visit Diagnoses Diagnosis Gross hematuria documented in this encounter Care Teams Adobe Developer Relationship Specialty Start Date End Date Ira Saunders MD [address] [place] [address] PCP - General Internal Medicine 05/11/25 documented as of this encounter
--- OUTSIDE RECORDS SUMMARY | 2025-09-05 16:50 | XMS_ITS | Clinical Summary ---
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 [address] [address] Rafat Albrecht MD [address] [facility] [address] [place] [address] Health Maintenance Due Date Last Done [...] Urine 0-5 0 - 5 /hpf [facility] [place] RBC, Urine None seen 0 - 2 /hpf [facility] [place] Squamous Epithelial, Urine 0-10 0 - 10 /hpf [facility] [place] Casts None seen None seen /lpf [facility] [place] Bacteria, Urine None seen None seen/Few [facility] [place] 07/25/2025 5:09 PM EDT 07/25/2025 us Rafat Albrecht MD LAB MICROBIOLOGY - GENERAL ORDER RICKI Final Result Performing Organization Address City/[facility]/ZIP Co de Phone Number [facility] [place] [address] [place] [address] * urine albumin / creatinine ratio (07/25/2025 5:09 PM EDT) Pathologist [facility] Creatinine, Ur 14.0 Not Estab. mg/dL [facility] [place] Albumin, Urine <3.0 Not Estab. ug/mL [facility] [place] Albumin/Creatin ine Ratio <21 0 - 29 mg/g creat [facility] [place] Comment: Normal: 0 - 29 Moderately increased: 30 - 300 Severely increased: >300 Urine Urine specimen obtained by clean catch procedure / Unknown 07/25/2025 5:09 PM EDT 07/25/2025 us Rafat Albrecht MD LAB URINE ORDERABLES Final Resul t [facility] [place] [address] [place] [address] * (ABNORMAL) Urinalysis with microscopic exam OUTSIDE OFFICE (07/25/2025 5:09 PM EDT) Specific [place], Urine <=1.005(A) 1.005 - 1.030 [facility] [place] pH Urine 7.0 5.0 - 7.5 [facility] [place] [phone] Color, Urine Yellow Yellow [facility] [place] Appearance Urine Clear Clear Lab [facility] [place] WBC Esterase Urine Negative Negative [facility] [place] [phone] Protein, Ur Negative Negative/Tra ce [facility] [place] Glucose, Ur Negative Negative [facility] [place] Ketones, Urine Negative Negative [facility] [place] Blood Urine 1+(A) Negative [facility] [place] Bilirubin Urine Negative Negative [facility] [place] Urobilinogen Urine 0.2 0.2 - 1.0 mg/dL [facility] [place] Nitrite, Urine Negative Negative [facility] [place] Microscopic Examination See below: [facility] [place] Comment:Microscopic was javier cated and was performed. Urine Urine specimen obtained by clean catch procedure / Unknown 07/25/2025 5:09 PM EDT 07/25/2025 Rafat Albrecht MD LAB URINE ORDERABLES Final Resul t [facility] [place] [address] [place] [address] * Ultrasound renal limited (06/20/2025 11:01 AM EDT) Anatomical Region Laterality Modality Body Ultrasound us Rafat Albrecht MD IMG US PROCEDURES Final Result * (ABNORMAL) Hemoglobin A1c (03/04/2024 2:51 PM EDT) Hemoglobin A1C 7.5(H) 4.8 - 5.6 % See order comments Comment: Prediabetes: 5.7 - 6.4 Diabetes: >6.4 Glycemic control for adults with diabetes: <7.0 Blood specimen (specimen) Venous blood / Unknown 03/04/2024 2:51 PM EDT 03/04/2024 Narrative [facility] - 03/05/2024 10:07 AM EDT Performed at: 01 - [facility] [address] [id number] Wafer Fabricator: Noelle Ferguson MD, Phone: [phone] Lucila Saab MD LAB BLOOD ORDERABLES Final Result [facility] See order comments [place] [address] from Last 3 Months or Most Recently Relevant to Health Maintenance Insurance [employer] Medicaid [employer] Care Teams Food Counselor Relationship Specialty Start Date End Date Ira Saunders MD [address] [place], [place] PCP - General Internal Medicine 05/08/23
== END ==
LOC: HO.CARD 13:08
PROVIDERS: PCP Internal Medicine; Visit Provider Internal Medicine
DX: R06.02 Shortness of breath (principal); R00.2 Palpitations
CPT/HCPCS: 93242; 93306

== ENCOUNTER → 2025-09-05 13:11 | Outpatient (BNV) | payer OTHER, SELFPAY | PROVIDERS: PCP Internal Medicine; Visit Provider Internal Medicine | DX: R06.02 Shortness of breath (principal) | CPT/HCPCS: 93306 ==